=== PATIENT | female | born 1965 | race Caucasian/White ===

== ENCOUNTER 2021-06-27 11:22 | Emergency (ER) | payer OTHER, SELFPAY ==
--- NOTE | ~2021-06-27 | CT_ITS ---
EXAMINATION: CT brain wo con, CT cervical spine wo con EXAM DATE: 06/27/2021 13:33 INDICATION: Fall, hit forehead. History of stroke. TECHNIQUE: Spiral CT of the head and cervical spine was performed without contrast. Axial, coronal a nd sagittal images were reviewed. Axial, coronal and sagittal images of the cervical spine were revie wed. The dose-length product (DLP) for this examination was 605.33 (accession [id number]), 130. 01 (accession [id number]) mGy-cm. The exposure was tailored according to patient size, and itera tive reconstruction (ASIR) was used as additional dose reduction technique. There is no prior study for comparison. FINDINGS: Head CT: Small region of acute subarachnoid hemorrhage overlying the right frontal lobe, axial image 44, coronal 31. Also small focus of acute hemorrhage overlying the left frontal lobe axial image 30. Location of these is consistent with posttraumatic etiology. There is a right-sided lateral ventricular shunt entering the right frontal lobe. Some associated rig ht frontal lobe encephalomalacia. No obstructive hydrocephalus, brain mass, acute intraparenchymal he morrhage, evidence of acute infarction or extra-axial collection. There is encephalomalacia or atroph y of the left cerebral peduncle to be from prior infarction. Bilateral cataract surgery. Cervical spine: There is no evidence of acute cervical fracture. The odontoid process is intact. Pr e-dens space is normal. Prevertebral soft tissue is normal. There are no soft tissue abnormalities identified. There is no disc space widening or traumatic vertebral body subluxation suspected. Mild mid cervical disc disease. Mild cervical arthropathy. A detailed level by level evaluation of calbo chris can be added as addendum if requested. IMPRESSION: 1. Small focus of acute subarachnoid hemorrhage overlying right frontal, and another small focus ove r the left frontal lobe. No calvarial fracture. 2. Mild cervical spondylosis. No acute cervical fracture. 3. Ventriculoperitoneal shunt and other chronic intracranial findings. I discussed small foci subarachnoid hemorrhage with Geeta Rivera MD at 06/27/2021 13:41 CDT. 1. Reviewed, dictated and finalized at location A. IMPRESSION: 1. Small focus of acute subarachnoid hemorrhage overlying right frontal, and a nother small focus over the left frontal lobe. No calvarial fracture. 2. Mild cervical spondylosis. No acute cervical fracture. 3. Ventriculoperitoneal shunt and other chronic intracranial findings. I discussed small foci subarachnoid hemorrhage with Geeta Rivera MD at 13:41 CDT. 1.
[2021-06-27 13:13] VITALS: BP 121/105; PULSE 95; RESP 18; TEMP 36.4; O2SAT 97
--- NOTE | 2021-06-27 14:02 | ED.FALL ---
HPI - Fall General Chief Complaint: Fall Stated Complaint: fall out of wheelchair Time Seen by Provider: 06/27/21 13:41 Source: EMS and RN notes reviewed Mode of arrival: EMS Limitations: physical limitation and clinical condition History of Present Illness HPI Narrative: Patient is 56 years old white female brought [facility] after falling out of her wheelchair prior to arrival to the emergency room, complaining of frontal headache. Patient denies loss of consciousness, nausea, vomiting, fever, chills. History of stroke with right hemiplegia, and aphasia.. Patient is not on any blood thinner Related Data Home Medications Medication Instructions Recorded Confirmed amantadine HCl 100 mg PO DAILY 06/27/21 atorvastatin 06/27/21 06/27/21 citalopram mg 06/27/21 docusate sodium 100 mg PO BID 06/27/21 duloxetine mg PO 06/27/21 ergocalciferol (vitamin D2) 06/27/21 famotidine 20 mg PO BID 06/27/21 loratadine 10 mg PO DAILY 06/27/21 melatonin 5 mg PO HS 06/27/21 mirtazapine mg 06/27/21 montelukast mg 06/27/21 olopatadine 1 drp EACH EYE DAILY 06/27/21 scopolamine base 06/27/21 Allergies Allergy/AdvReac Type Severity Reaction Status Date / Time No Known Allergies Allergy Mild Verified 06/27/21 13:39 Review of Systems Review of Systems: CONSTITUTIONAL: Denies fever, chills, or sweats. EYES: Denies visual changes, redness, or discharge. ENT: Denies rhinorrhea, congestion, sore throat, or otalgia. CARDIOVASCULAR: Denies chest pain, palpitations, or edema. RESPIRATORY: Denies cough or dyspnea. GASTROINTESTINAL: Denies abdominal pain, nausea, vomiting, or diarrhea. GENITOURINARY: Denies dysuria or hematuria. SKIN: Denies rash or itching. MUSCULOSKELETAL: Denies back pain, joint pain, or myalgia. NEUROLOGIC: Complaining of headache PSYCHIATRIC: Denies anxiety or depression. Exam Narrative: General appearance: Well-developed, well-nourished Skin: Normal color Head: Normocephalic, right frontal contusion Eyes: Left eye conjunctival injection, pupil wide dilated not reactive to light. Not sure this is is new or old. ENT: Oropharynx normal, ears normal, nose normal Neck: Supple, nontender Chest and respiratory: Airway patent, no respiratory distress, no accessory muscle use Heart: Regular rate/rhythm Abdomen: Soft, nontender, no organomegaly, quiet bowel sounds Vascular: Normal peripheral pulses, normal capillary refill. Musculoskeletal: Right hemiplegia Neurologic: Alert and severe slurred speech, able to understand me and to follow my commands, right hemiplegia Course Course Emergency Course: Stable Consultations Consultation #1: Dr. Thomas/neurosurgeon at [facility], accepted patient transfer Date: 06/27/21 Time: 14:21 Consultation #2: DR OCAMPO Date: 06/27/21 Time: 14:21 Vital Signs Vital signs: Vital Signs Temperature 36.4 C L 06/27/21 13:13 Pulse Rate 95 06/27/21 13:13 Respiratory Rate 18 06/27/21 13:13 Blood Pressure 121/105 H 06/27/21 13:13 Pulse Oximetry 97 06/27/21 13:13 Temperature 36.4 C L 06/27/21 13:13 Pulse Rate 95 06/27/21 13:13 Respiratory Rate 18 06/27/21 13:13 Blood Pressure 121/105 H 06/27/21 13:13 Pulse Oximetry 97 06/27/21 13:13 MDM - Fall Imaging Data Radiologist's impression: Impressions Cervical Spine CT 06/27/21 13:34 IMPRESSION: 1. Small focus of acute subarachnoid hemorrhage overlying right frontal, and another small focus over the left frontal lobe. No calvarial fracture. 2. Mild cervical spondylosis. No acute cervical fracture. 3. Ventriculoperitoneal shunt and other chronic intracranial findings.
--- NOTE | 2021-06-27 14:32 | PC.NURSE ---
ATTEMPTED TO CALL PRATEEK CANNON'S POA AT [phone] AND THE NUMBER HAS BEEN DISCONNECTED. ATTEMPTED TO CALL SECOND NUMBER ON CHART AT [phone] AND LEFT VOICE MAIL
[2021-06-27 14:38] VITALS: BP 104/42; PULSE 89; RESP 16; O2SAT 95
[2021-06-27 16:15] VITALS: BP 112/72; PULSE 84; RESP 16; O2SAT 96
[2021-06-27 18:20] VITALS: BP 120/64; PULSE 80; RESP 16; O2SAT 98
--- NOTE | 2021-06-27 19:07 | PC.NURSE ---
NEW PHONE NUMBER OBTAINED FOR PRATEEK GALEANA THE PATIENTS MOTHER AND POA. [phone]. MOTHER WAS NOTIFIED OF PATIENTS CONDITION AND NEED FOR TRANSFER TO [facility].
[2021-06-27 22:47] VITALS: BP 108/47; PULSE 82; RESP 12; O2SAT 94
[2021-06-28] VITALS (7 sets, daily range): BP systolic 110–118; BP diastolic 54–68; PULSE 75–91; RESP 12–15; O2SAT 94–97
== END 2021-06-28 02:42 | disposition short-term general hospital (02) ==
LOC: ANHED 14:13
PROVIDERS: Emergency Provider Emergency Medicine; PCP Internal Medicine
DX: S06.6X0A Traumatic subarachnoid hemorrhage without loss of consciousness, initial encounter (principal); G20 Parkinson's disease; H47.012 Ischemic optic neuropathy, left eye; R56.9 Unspecified convulsions; R13.10 Dysphagia, unspecified; Z66 Do not resuscitate; I69.920 Aphasia following unspecified cerebrovascular disease; I69.951 Hemiplegia and hemiparesis following unspecified cerebrovascular disease affecting right dominant side; Z98.2 Presence of cerebrospinal fluid drainage device; M47.812 Spondylosis without myelopathy or radiculopathy, cervical region; W05.0XXA Fall from non-moving wheelchair, initial encounter
CPT/HCPCS: 70450; 72125; 99285

== ENCOUNTER 2024-06-26 11:11 | Outpatient (CLI) | payer OTHER, SELFPAY ==
--- NOTE | ~2024-06-26 | XR_ITS ---
XR chest 2V 06/26/2024 11:34 Indication: Aspiration. Cough and congestion. Procedure: AP and lateral views of the chest Comparison: No prior studies for comparison. Findings: Central line tip in the right atrium. Borderline heart size. Mild interstitial edema. No pl eural effusion or pneumothorax. No acute osseous abnormality. Impression: 1: Mild interstitial edema. Reviewed, dictated and finalized at location B. Impression: 1: Mild interstitial edema.
== END 2024-06-26 11:12 | disposition home or self-care (01) ==
LOC: ANHIMG 11:13
PROVIDERS: PCP Internal Medicine; Visit Provider Internal Medicine
DX: J84.9 Interstitial pulmonary disease, unspecified (principal); R09.89 Other specified symptoms and signs involving the circulatory and respiratory systems
CPT/HCPCS: 71046

== ENCOUNTER 2025-06-29 04:58 | Inpatient (IN) | payer OTHER, SELFPAY ==
--- OUTSIDE RECORDS SUMMARY | 2009-08-23 04:30 | XMS_ITS | Continuity of Care Document ---
Author Organization [facility] Address [address] [place] [address] Exec utive [facility] [address] [place] [address] Phone Care Team Providers Care Concreter Name Role Phone Jerson Milan Unavailable Unavailable Procedures Procedure Date Eye Exam Established Pt Eye Exam Established Pt Advance Directives Directive Yes / No Effective Date File Name No Information Encounters Encounter Description Practice Location Reason(s) For Visit Diagnoses Date Provider Providers Copied on Encounter [facility], [address] [place] [address] [address], [place], [place], [id number], tel:[phone] SEC [facility] No Information [address]. [address] [facility] [address], [facility], . tel:[phone] [facility], [address] [place] [address] [address], [place], [place], [id number], tel:[phone] SEC [facility] No Information [address]. [address] [facility] [place] , [address], [place], [place], [facility], [place]. tel:[phone] Family History Family Member Type Diagnosis Age At Onset No Information Payers Payer name Insurance type Covered libertarian ID Authorjuanita iniguez(s) [facility] Commercial CI [id number] Social History Type Description Quantity Date Captured Comments Sex Female Smoking Status No Information Chief Complaint And Reason For Visit No Information Reason For Referral Reason For Referral No Information History Of Present Illness Encounter Date Complaint History Of Prese nt Illness No Information Functional Status Date Functional Assessmen t No Information Instructions Date Instruction Additional Infor mation No Information Assessments Type Assessment Date No Information Patient Care Teams Name Effective Dates (start - stop) Status Members No Information
[2025-06-29] VITALS (24 sets, daily range): BP systolic 91–130; BP diastolic 52–80; PULSE 93–116; RESP 17–28; TEMP 36.1–36.6; O2SAT 90–101; BMI 33.9
--- NOTE | ~2025-06-29 | CT_ITS ---
CTA CHEST CLINICAL HISTORY: ?PE . COMPARISON: Chest x-ray one day prior TECHNIQUE: Helical CTA performed from thoracic inlet to upper abdomen IV contrast information not listed in PACS Coronal, sagittal reformats. Multiplanar MIPS CT images acquired with automatic exposure control for dose reduction DLP: 690 mGy-cm FINDINGS: Pulmonary arteries: No PE. Thoracic Aorta: No dissection or aneurysm. Atherosclerotic disease. Heart/pericardium: Unremarkable. RV/LV ratio: Normal. Lungs/Pleura: Scattered airspace disease left upper lobe. Near-complete atelectasis and consolidative changes bilateral lower lobes. Tracheobronchial tree: Occluded bronchus intermedius and left lower lobe mainstem. Nodes: No enlarged nodes. Bones: Compression deformity T4. Soft tissues: Breast implants, left with intracapsular rupture. Visualized upper abdomen: Hepatomegaly, with steatosis. Small hiatal hernia. IMPRESSION: 1. Large bilateral aspiration. Bilateral lower lobe bronchial occlusive debris. 2. Left upper lobe aspiration and/or airspace disease. 3. No PE. 4. T4 compression fracture. Reviewed, dictated and finalized at location R. IMPRESSION: 1. Large bilateral aspiration. Bilateral lower lobe bronchial occlusive debris . 2. Left upper lobe aspiration and/or airspace disease. 3. No PE. 4. T4 compression fracture.
--- NOTE | ~2025-06-29 | XR_ITS ---
MODIFIED ESOPHAGRAM HISTORY: Difficulty swallowing TECHNIQUE: Modified barium esophagram was performed on 06/30/2025. I administered fluoroscopy and performed the exam with speech pathologist. Patient was seated for lateral fluoroscopic imaging for ingestion of thin liquids, pudding, solids and quantified amounts, followed by thin liquids in uncontrolled amounts. This was recorded on tape. A single fluoroscopic spot image was also recorded. The DAP for this procedure was 1.273 Gycm2. The amount of fluoroscopy time used during this procedure was 1.4 minutes. FINDINGS: Oral stage: Reduced lingual movement. Pharyngeal stage: Reduced laryngeal elevation. There is vallecular residue. Trace laryngeal penetration without aspiration with moderately thickened liquids.. Cervical/esophageal stage: Adequate function. IMPRESSION: Mild oropharyngeal dysphagia with laryngeal penetration without aspiration with moderately thickened liquids. Please correlate with speech pathologist findings and specific feeding recommendations. Reviewed, dictated and finalized at location A. IMPRESSION: Mild oropharyngeal dysphagia with laryngeal penetration without asp iration with moderately thickened liquids. Please correlate with speech pathol ogist findings and specific feeding recommendations.
--- NOTE | ~2025-06-29 | XR_ITS ---
Examination: XR chest 1V portable Clinical History: SOB Comparison: 06/26/2024 Technique: Portable AP Findings: FILAMENT TESTER shunt tubing right side as before. Heart size normal. Mildly increased interstitial markings left lung. Bibasilar atelectasis. No acute bony abnormality. IMPRESSION: 1. Left lung probably unilateral interstitial pulmonary edema and/or pneumonitis. Chronic interstitial changes not excluded. Reviewed, dictated and finalized at location R. IMPRESSION: 1. Left lung probably unilateral interstitial pulmonary edema and/or pneumonit is. Chronic interstitial changes not excluded.
--- NOTE | ~2025-06-29 | XR_ITS ---
EXAMINATION: XR chest 1V portable DATE: 07/01/2025 19:44 INDICATION: Desaturation and shortness of breath TECHNIQUE: frontal view of the chest was obtained. COMPARISON: Chest radiograph dated 06/30/2025 FINDINGS: Small lung volumes. Mild opacities at the lung bases which could represent atelectasis or pneumonia and which appears slightly improved compared with the prior study. No pleural effusion or pneumothorax. Heart size is normal. Likely ventricular atrial shunt extending caudally along the right side of neck distal tip projecting over the right atrium. IMPRESSION: 1. Small lung volumes with improvement of opacities at the bilateral lung bases which could represent atelectasis or pneumonia. Reviewed, dictated and finalized at location A.
--- NOTE | ~2025-06-29 | XR_ITS ---
EXAMINATION: XR chest 1V portable COMPARISON: No comparisons available. HISTORY: increase in oxygen needs FINDINGS: Small basilar infiltrates. Mild pulmonary venous congestion. No pneumothorax. Mild cardiomegaly. Mediastinal and hilar contours are within normal limits. Bony thorax no acute abnormality. Miscellaneous: Probable right-sided WATER SPONGER shunt. Impression: CHF. Early basilar pneumonia suspected Reviewed, dictated and finalized at location P. Impression: CHF. Early basilar pneumonia suspected
--- NOTE | 2025-06-29 05:01 | ECG_ITS ---
Test Date: 2025-06-29 04:54:13 Measurements Intervals [place] Rate: 111 P: 21 OK: 161 QRS: -1 QRSD: 78 T: 28 QT: 313 QTc: 426 Interpretive Statements SINUS TACHYCARDIA MINIMAL ST DEPRESSION [0.025+ mV ST DEPRESSION] ABNORMAL RHYTHM ECG No previous ECG available for comparison Electronically Signed On 06-29-2025 06:18:38 CDT by Jeremías Us M.D.
[2025-06-29 05:16] LABS: Hematocrit 40.1 % (37.0-47.0); Hemoglobin 11.5 g/dL (12.0-15.0); Immature Granulocyte Percent A 0.4 % (0-0.5); Lymphocytes Absolute Auto 2.36 K/mm3 (0.9-3.2); Mean Corpuscular HGB Conc 28.7 g/dl (32-36); Mean Corpuscular Hemoglobin 24.5 pg (26-34); Mean Corpuscular Volume 85.3 fl (80-100); Nucleated Red Blood Cells Absolute Auto 0.000 K/mm3 (0.0-0.012); Nucleated Red Blood Cells Perc 0.0 % (0.0-0.2); Platelet Count Result 304 k/mm3 (150-375); Red Blood Count 4.70 M/mm3 (4.2-5.4); White Blood Count 11.8 K/mm3 (4.5-10.0)
--- OUTSIDE RECORDS SUMMARY | 2025-06-29 05:17 | XMS_ITS | Patient Health Record ---
Author Organization [facility] Address [address] [place] [address] Care Team Providers Care Trust Advisor Name Role Phone Anshu Fuchs Primary Care Provider Rigoberto Conner Unavailable [phone] Anabel Hardwick Unavailable Allergies No Known Allergies Reason For Referral No Information Medications Medication SIG (Take, Route, Frequency, Duration) Notes Start Date End Date Status Vitamin D (Ergocalciferol) 1.25 MG (55345 UT) Take 1 capsule by mouth once a week; Duration: 28 days Active Ciprofloxacin-dexAMETHason e 0.3-0.1 % INSTILL 4 DROPS INTO AFFECTE EAR TWICE DAILY FOR 7 DAYS.; Duration: 7 Active Hydrocortisone 2.5 % 1 application AT BEDTIME Externally Once a day; Duration: 30 days Active Fluconazole 100 MG 1 tablet Orally octavio y; Duration: 7 days Active Albuterol Sulfate (2.5 MG/3ML) 0.083% 3 mL as needed Inhalation every 6 hrs; Duration: 30 days Active Mucus Relief 600 MG 1 tablet as needed Orally every 12 hrs; Duration: 30 days Active Erythromycin 5 MG/GM 1 application into the lower eyelid of affected eye Ophthalmic Four times a day; Duration: 7 days 05/06/2025 Active Refresh 1.4-0.6 % as directed Ophthalm ic as needed; Duration: 30 days Active Pregabalin 75 MG 1 capsule Orally Twi ce a day 05/20/2025 Active Pataday 0.2 % 1 drop into affected eye Ophthalmic Once a day; Duration: 30 days Active Olopatadine HCl 0.2 % 1 drop into affect ed eye Ophthalmic Once a day; Duration: 30 days Active Wixela Inhub 100-50 MCG/ACT INHALE 1 DOSE BY MOUTH TWICE DAILY; Duration: 30 Active Melatonin 5 MG TAKE 1 TABLET BY SUSAN TH EVERY EVENING; Duration: 30 Active DTx Bessie - Miscellaneous - Incourage Vest externally twice daily As needed sputum management 10/04/2023 Active Docusate Sodium 100 MG 1 capsule as need ed Orally twice a day; Duration: 30 days Not-Taking Senna 8.6 MG 1 tablet Orally ever y 12 hours; Duration: 30 days Active EQ Stool Softener 100 MG Take 1 capsule by mouth twice daily; Duration: 30 Active Albuterol Sulfate HFA 108 (90 Base) MCG/ACT INHALE 1 PUFF BY MOUTH EVERY 4 HOURS NEEDED FOR 30 DAYS; Duration: 34 Active Atorvastatin Calcium 10 MG TAKE 1 TABLET BY MOUTH EVERY DAY; Duration: 90 Active Mirtazapine 15 MG TAKE 1 TABLET BY SUSAN TH EVERY DAY AT BEDTIME; Duration: 90 Active Thick-It - use with all drinks Orally six times a day; Duration: 30 days Active Citalopram Hydrobromide 20 MG 2 tablets Orally Once a day; Duration: 90 days Active Montelukast Sodium 10 MG Take 1 tablet b y mouth once daily; Duration: 180 Active Famotidine 20 MG 1 tablet Orally twic e a day; Duration: 90 days Active Amantadine HCl 100 MG 1 capsule Orally O nce a day; Duration: 90 days Active Gentamicin Sulfate 0.3 % 1 drop into bot h eyes Ophthalmic four time per day; Duration: 5 days 06/26/2023 Active Loratadine 10 MG TAKE 1 TABLET BY SUSAN TH EVERY DAY Active Social History Tobacco Use: Social History Observation Description Date Details (start date - stop date) Never Smoker NA - NA Sex Assigned At : Social History Observation Description Sex Assigned At Female Dont use, Tobacco Use/Smoking Question Answer Notes Are you a nonsmoker Alcohol Screen (Audit-C) Question Answer Notes Did you have a drink containing alcohol in the p ast year? No PRAPARE Question Answer Notes Date Completed/Updated: 10/09/2022 What is your current housing situation? I have h ousing Are you worried about losing your housing? No What is the highest level of school that you have finished? High school diploma or GED In the past year, have you o r any family members you live with been unable to get any of the following when it was really needed? Check all that apply I do not have problems meeting my needs Has lack of transportation k ept you from medical appointments, meetings, work or from getting things needed for daily living? No How often do you see or talk to people that you care about and feel close to? (For example: talking to friends on the phone, visiting friends or family, going to [employer] or club meetings) More than 5 times a week How stressed are you? Stress is when someone feels tense, nervous, anxious, or can\t sleep at night because their mind is troubled Not at all In the past year have you sp ent more than 2 nights in a row in a chcf, assisted, assisted center, or juvenile correctional facility? No Are you a refugee? No Do you feel physically and e motionally safe where you currently live? Yes In the past year, have you b een afraid of your partner or ex-partner? 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 Active confirmed Problem Chronic respiratory failure (81296992) Chronic respiratory failure with hypoxia (J96.11) Active confirmed Problem Dysphagia (14514945) Dysphagia (R13.10) Active confirmed Problem Asthma (739508310) Asthma (J45.909) Active confirmed Problem Dysphagia (27207754) Dysphagia, unspecified type (R13.10) Active confirmed Problem Expressive aphasia (703312801) Expressive aphasia (R47.01) Active confirmed Problem Completed stroke (43177082) Completed stroke (I63.9) 8 Active confirmed Problem Right hemiplegia (880430518) Right hemiplegia (G81.91) 8 Active confirmed Vital Signs Heart Rate 84 /min 06/05/2025 Respiratory Rate 20 /min 06/05/2025 Blood pressure diastolic 84 mm Hg 06/05/2025 Oximetry 94 % 06/05/2025 Height 64 in 06/05/2025 Blood pressure systolic 114 mm Hg 06/05/2025 Encounters Encounter Location Date Provider Diagnosis [address] [place] [address] 06/05/2025 Anshu Fuchs Chronic respiratory failure with hypoxia J96.11 ; Dysphagia, unspecified type R13.10 ; Right hemiplegia G81.91 ; Asthma J45.909 and Completed stroke I63.[address] [address] 06/30/2024 Anshu Fuchs [address] [address] 07/23/2024 Anshu Fuchs [address] [address] 07/23/2024 Anshu Fuchs [address] [address] 07/30/2024 Anshu Fuchs [address] [address] 08/05/2024 Anshu Fuchs [address] [address] 11/03/2024 Anshu Fuchs Dysphagia R13.[address] [address] 11/07/2024 Rigoberto Conner Dysphagia R13.[address] [address] 12/22/2024 Anshu Fuchs [address] [address] 01/29/2025 Anshu Fuchs Conjunctivitis H10.[address] [address] 02/19/2025 Anshu Fuchs [facility] [address] [place] [address] 02/20/2025 Anshu Fuchs [address] [address] 03/26/2025 Anshu Fuchs Thelma infection B37.[address] [address] 04/14/2025 Anshu Fuchs [facility] [address] [place] [address] 04/16/2025 Anabel Hardwick Asthma J45.[address] [address] 04/29/2025 Anshu Fuchs Dermatitis L30.[address] [address] 05/05/2025 Anshu Fuchs Conjunctivitis H10.[address] [address] 05/26/2025 Anshu Fuchs [address] [address] 05/27/2025 Anshu Fuchs Dermatitis L30.9 Assessments Encounter Date Diagnosis (ICD Code) Assessment Notes Treatment Notes Treatment Clinical Notes Section Notes 05/05/2025 Conjunctivitis (ICD-10 - H10.9) 06/05/2025 Chronic respiratory failure with hypoxia (ICD-10 - J96.11) LIKELY DUE TO PRIOR SMOKING AND CHRONIC LOW GRADE ASPIRATION. DISCUSSED WITH PATIENT, MOTHER, AND SISTER THAT REPEAT MODIFIED BARIUM SWALLOW MIGHT SHOW WORSENING OF HER DYSPHAGIA AND THE TREATMENT WOULD BE A FEEDING TUBE AND NPO. THEY DO NOT WISH TO DISCONTINUE ORAL FEEDINGS UNLESS SHE BECOMES MORE SYMPTOMATIC. 05/27/2025 Dermatitis (ICD-10 - L30.9) 06/05/2025 Dysphagia, unspecified type (ICD-10 - R13.10) 11/03/2024 Dysphagia (ICD-10 - R13.10) 11/07/2024 Dysphagia (ICD-10 - R13.10) 01/29/2025 Conjunctivitis (ICD-10 - H10.9) 03/26/2025 Thelma infection (ICD-10 - B37.9) 04/16/2025 Asthma (ICD-10 - J45.909) 04/29/2025 Dermatitis (ICD-10 - L30.9) 06/05/2025 Right hemiplegia (ICD-10 - G81.91) 06/05/2025 Asthma (ICD-10 - J45.909) 06/05/2025 Completed stroke (ICD-10 - I63.9) 05/05/2025 Other Learning About the Safe Use of Antibiotics material was discussed. Pt was educated on use of antibiotic medication including dosing, side effects, adverse effects and anticipated response. Pt was also educated on importance of completing full course of treatment as ordered. Patient voiced understanding of all. Plan Of Treatment No Information Insurance Providers Payer Name Payer Address Payer Phone Subscriber Number Group Number Insured Name Patient Relationship to Insured Coverage Start Date Coverage End Date [employer] [address] [place] [address] [id number] Esme Zeng Self - patient is the insured 3 3 [employer] [facility] [address] [place] [address] [id number] Esme Zeng Self - patient is the insured 3 MEDICARE PART A [address] [place] [address] [id number] Esme Zeng Self - patient is the insured 3 Medical (General) History Surgical History Surgery Date(Month/Year) Brain shunt 12/2017 Hospitalization History Reason Date(Month/Year) Stroke 12/2017
--- OUTSIDE RECORDS SUMMARY | 2025-06-29 05:17 | XMS_ITS | Clinical Summary ---
Author Organization [facility] Address [address] [place] [address] Care Team Providers Care Ironing Machine Operator Name Role Phone Jose Perez MD Primary Care Provider Source Comments [facility],non-[facility] health Affiliates and Associated Physician Practices is amultiple site organization consisting of ambulatory clinics and hospital sitesin [place], [place], [place] and [place]. This disclosure is being madepursuant to the Care Everywhere program and may not contain all information available regarding this patient. Last updated [facility] Health Allergies No known active allergies Social History Tobacco Use Types Packs/Day Years Used Date Smoking Tobacco: Never Assessed Comments Unknown Sex and Gender Information Value Date Recorded Sex Assigned at Not on file Legal Sex Female 5:53 AM WIRE [employer] Gender Identity Not on file Sexual Orientation Not on file Last Filed Vital Signs Vital Sign Reading Time Taken Comments Blood Pressure 115/74 06/28/2021 11:29 AM CDT Pulse 80 06/28/2021 12:05 PM CDT Temperature 37 C (98.6 F) 06/28/2021 12:05 PM CDT Respiratory Rate 14 06/28/2021 11:29 AM CDT Oxygen Saturation 95% 06/28/2021 12:05 PM CDT Inhaled Oxygen Concentration - - Weight 47.6 kg (105 lb) 06/28/2021 3:44 AM CDT Height 160 cm (5' 3) 06/28/2021 3:44 AM CDT Body Mass Index 18.6 06/28/2021 3:44 AM CDT Plan of Treatment Health Maintenance Due Date Last Done Comments COLOGUARD (AGES 45-75) - COL ON CA SCREENING 1963 COLON MONITORING 1963 COLONOSCOPY - COLON CA SCREENING 1963 CT COLONOGRAPHY - COLON CA SCREENING 1963 Colorectal Cancer Screening 1963 FIT - COLON CA SCREENING 1963 FLEX SIG - COLON CA SCREENING 1963 LIPID TESTING 1963 MAMMOGRAM 1963 HIV SCREENING 1978 HEPATITIS C SCREENING 05/06/1981 DTAP/TDAP/TD VACCINES (1 - Tdap) 1982 PNEUMOCOCCAL VACCINE 50+ (1 of 1 - PCV) 2013 ZOSTER VACCINE (1 of 2) 2013 DEPRESSION SCREENING 10/01/2024 COVID-19 VACCINE (1 - 2023-2 5 season) 2025 INFLUENZA VACCINE (#1) 2025 Respiratory Syncytial Virus (RSV) Vaccine Pt: or over 60 yrs (1 - 1-dose 75+ series) 2038 HEPATITIS B VACCINE Aged Out No longe r eligible based on patient's age to complete this topic HIB VACCINE Aged Out No longer eligi ble based on patient's age to complete this topic HPV VACCINE Aged Out No longer eligi ble based on patient's age to complete this topic MENINGOCOCCAL (Group B) VACC INE SHARED DECISION-MAKING Aged Out No longer eligibl e based on patient's age to complete this topic MENINGOCOCCAL GROUPS A/C/Y/W VACCINE Aged Out No longer eligible b ased on patient's age to complete this topic Insurance [facility] [address] Care Teams Ironing Machine Operator Relationship Specialty Start Date End Date Jose Perez MD [address] [place] [phone] PCP - General Internal Medicine 07/23/15
--- OUTSIDE RECORDS SUMMARY | 2025-06-29 05:18 | XMS_ITS | Clinical Summary ---
Author Organization [facility] Address [address] [place] [address] [place] [address] Care Team Providers Care Adult School Teacher Name Role Phone Unavailable Primary Care Provider Unavailabl e Social History Tobacco Use Types Packs/Day Years Used Date Smoking Tobacco: Never Assessed Comments Unknown Sex and Gender Information Value Date Recorded Sex Assigned at Not on file Legal Sex Female 5:35 AM EGG PASTEURIZER Gender Identity Not on file Sexual Orientation Not on file Plan of Treatment Health Maintenance Due Date Last Done Comments DTAP/TDAP/TD VACCINES (1 - Tdap) 1982 HPV/Cotest (21-29) 1984 CERVICAL CANCER SCREENING 1993 HPV/Cotest (30-65) 1993 PAP SMEAR 1993 BREAST CANCER SCREENING 2003 COLORECTAL SCREENING 2008 Colorectal Cancer Screening 2008 FIT-DNA Q 3 years 2008 FIT/FOBT Q 1 year 2008 Flex Sig/CT Colonography Q 5 years 2008 ZOSTER VACCINE (1 of 2) 2013 INFLUENZA VACCINE (#1) 2025 RSV VACCINE (60+ or ) (1 - 1-dose 75+ series) 2038 Insurance [facility] Address: [facility] [id number] [place] [address]
--- OUTSIDE RECORDS SUMMARY | 2025-06-29 05:18 | XMS_ITS | Encounter Summary ---
Author Organization [facility] Address 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 Gender Identity Not on file Sexual Orientation Not on file documented as of this encounter Plan of Treatment Not on file documented as of this encounter Procedures Procedure Name Priority Date/Time Associated Diagnosis Comments CT HEAD WO CONTRAST Stat 04/02/2008 2 :03 PM CDT CBC WITH DIFFERENTIAL Stat 04/02/2008 1:20 PM CDT COMPREHENSIVE METABOLIC PANEL Stat 04/02/2008 1:20 PM CDT documented in this encounter Results * CT HEAD WO CONTRAST (04/02/2008 2:03 PM CDT) Anatomical Region Laterality Modality Head Other 04/02/2008 2:03 PM CDT Narrative 04/02/2008 3:51 PM CDT [facility] [address] [place], [place] [address] Admit Date: 04/02/2008 ESME MORELOS Sex: F Admit Prov: ER, AUTHORIZED P Date: 1965 Primary Care Prov: Margarita POZO CMRN: [id number] [id number] [facility] Ordering Prov: N/A Accession Number: [id number] Interpretation EXAM: CT OF THE HEAD WITHOUT CONTRAST, 04/02/2008 History: Dizziness. Technique: CT of the head was performed without intravenous contrast. Continuous spiral imaging was performed through the head from above the vertex through the skull base. Images of the brain were reconstructed in the axial plane at 5 mm intervals. Bone and soft tissue windows were reviewed. Findings: The brain and ventricles are within normal limits. There is no hemorrhage, midline shift, mass-effect, or extra-axial fluid collection. Review of bone windows shows no depressed or displaced skull fracture. There is no aggressive bone lesion of the skull. Paranasal sinuses and mastoid air cells are clear. Impression: Negative unenhanced CT of the brain. . Dictated by: ALFONSO TREADWELL 04/02/2008 14:24 Electronically signed by: ALFONSO TREADWELL 04/02/2008 15:50 Transcribed: 04/02/2008 14:47 DKT Procedure Note Alfonso Treadwell - 04/02/[address] [address] Admit Date: 04/02/2008 ESME MORELOS Sex: F Admit Prov: ER, AUTHORIZED P Date: 1965 Primary Care Prov: Margarita POZO CMRN: [id number] [facility] [id number] IM[facility] Ordering Prov: N/A Interpretation EXAM: CT OF THE HEAD WITHOUT CONTRAST, 04/02/2008 History: Dizziness. Technique: CT of the head was performed without intravenouscontrast. Continuous spiral imaging was performed through the head from abovethe vertex through the skull base. Images of the brain were reconstructedin the axial plane at 5 mm intervals. Bone and soft tissue windowswere reviewed. Findings: The brain and ventricles are within normal limits. There isno hemorrhage, midline shift, mass-effect, or extra-axial fluidcollection. Review of bone windows shows no depressed or displaced skullfracture. There is no aggressive bone lesion of the skull. Paranasal sinusesand mastoid air cells are clear. Impression: Negative unenhanced CT of the brain. . Dictated by: ALFONSO TREADWELL 04/02/2008 14:24 Electronically signed by: ALFONSO TREADWELL 04/02/2008 15:50 Transcribed: 04/02/2008 14:47 DKT [place] MD CT ORDERABLES Final Result * CBC WITH DIFFERENTIAL (04/02/2008 1:20 PM CDT) RDW-STDEV 42.0 37.1 - 48.7 fL [facility] RBC 4.79 3.90 - 4.90 M/uL [facility] MCHC 34.1 31.5 - 35.5 % [facility] MCV 86.4 82.0 - 99.0 fL [facility] PLATELETS 292 140 - 350 K/uL [facility] HEMOGLOBIN 14.1 11.8 - 14.8 g/dL [facility] RDW 13.2 11.5 - 14.5 % [facility] WBC 6.6 4.0 - 9.8 K/uL [facility] MCH 29.4 27.2 - 32.6 pg [facility] MPV 9.5 9.3 - 12.4 fL [facility] HEMATOCRIT 41.4 35.5 - 44.0 % [facility] EOSINOPHIL ABSOLUTE 0.07 0.00 - 0.70 K/uL [facility] LYMPHOCYTES 42 16 - 45 % [facility] LYMPHOCYTE ABSOLUTE 2.75 0.70 - 4.50 K/uL [facility] BASOPHILS 0 0 - 2 % [facility] BASOPHILS ABSOLUTE 0.02 0.00 - 0.20 K/uL [facility] MONOCYTES 6 3 - 13 % [facility] MONOCYTE ABSOLUTE 0.42 0.10 - 1.30 K/uL [facility] NEUTROPHILS 51 45 - 70 % [facility] NEUTROPHIL ABSOLUTE 3.34 1.90 - 7.00 K/uL [facility] EOSINOPHILS 1 0 - 7 % [facility] Blood specimen (specimen) 04/02/2008 1:20 PM CDT 04/02/2008 1:32 PM CDT us [place] MD HEMATOLOGY ORDERABLES Edited INTERFACE SYSTEM Refer to clinic/hospital department [facility] CLIA# [id number] [address] [place] [address] * (ABNORMAL) COMPREHENSIVE METABOLIC PANEL (04/02/2008 1:20 PM CDT) ALKALINE PHOSPHATASE 92 35 - 104 U/L [facility] BILIRUBIN TOTAL 0.4 0.2 - 1.0 mg/dL [facility] CO2 21(L) 22 - 30 mmol/L [facility] TOTAL PROTEIN 7.6 6.3 - 8.6 g/dL [facility] POTASSIUM 3.9 3.5 - 4.9 mmol/L [facility] GLUCOSE 86 65 - 99 mg/dL [facility] AST 16 12 - 32 U/L [facility] BUN 11 6 - 20 mg/dL [facility] CALCIUM 9.2 8.4 - 10.2 mg/dL [facility] CHLORIDE 103 96 - 108 mmol/L [facility] ALBUMIN 4.6 3.4 - 4.8 g/dL [facility] CREATININE 0.64 0.51 - 0.95 mg/dL [facility] SODIUM 135 135 - 145 mmol/L [facility] ALT 12 0 - 31 U/L [facility] GFR, >60 >=60 mL/min/1.7 sq meter [facility] GFR >60 >=60 mL/min/1.7 sq meter [facility] Comment: Modification of Diet in Renal Disease (MDRD) study formula. Estimated GFR rate interpretative information for both Americans and non- Americans is available on the [facility] Intranet at: [email or web address] Select: Lab Policies and Procedures Select: Reference Ranges - GFR Blood specimen (specimen) 04/02/2008 1:20 PM CDT 04/02/2008 1:32 PM CDT us [facility] [place] MD CHEMISTRY ORDERABLES Edited [facility] CLIA# [id number] [address] [place], [place] [address] documented in this encounter Visit Diagnoses Not on filedocumented in this encounter Care Teams Alfalfa Dehydrator Operator Relationship Specialty Start Date End Date Margarita Pozo MD PCP - General 04/01/08 09/15/21 documented as of this encounter
[2025-06-29 05:29] LABS: Alanine Aminotransferase 23 U/L (6-35); Albumin Level 4.2 g/dL (3.5-5.1); Alkaline Phosphatase 200 U/L (38-126); Anion Gap 9 mmol/L (4-12); Aspartate Amino Transferase 30 U/L (14-36); Bilirubin,Total 0.4 mg/dL (0.2-1.3); Blood Urea Nitrogen 19 mg/dL (7-17); Calcium 9.3 mg/dL (8.4-10.2); Carbon Dioxide 27 mmol/L (22-30); Chloride 105 mmol/L (98-107); Estimated Glomerular Filt Rate 60; Glucose 120 mg/dL (65-110); Magnesium 2.5 mg/dL (1.6-2.3); Potassium 4.7 mmol/L (3.4-5.0); Sodium 141 mmol/L (137-145); Total Protein 8.9 g/dL (6.3-8.2)
[2025-06-29 05:38] LABS: NT Pro B Type Natriuretic Pept 71 pg/mL (19.9-100)
[2025-06-29] MEDS: IPRATROPIUM BR 0.02% INH SOLN 0.5 MG/2.5 ML VIAL 2 MG INHALATION (05:48)
[2025-06-29] MEDS: ALBUTEROL SULFATE NEB 2.5 MG/3 ML INH 10 MG INHALATION (05:48)
[2025-06-29 05:53] LABS: Influenza A QL RT-PCR Negative (Negative); Influenza B QL RT-PCR Negative (Negative); RSV RNA, RT-PCR Negative (Negative); SARS-CoV-2 RNA PCR Negative (Negative)
[2025-06-29 05:57] LABS: Alveolar/Arterial O2 Gradient 276.7 mmHg; Carboxyhemoglobin 0.8 % THb (0-2.0); Fractional Inspired Oxygen 55 %; HCO3 ABG 24.6 mEq/l (22.0-26.0); Methemoglobin ABG 0.2 %THb (0-1.5); Oxygen Content ABG 15.7 %vol (16.0-22.0); Oxygen Saturation ABG 89.8 % (95.0-100.0); PCO2 ABG 48.3 mmHg (35.0-45.0); PO2 ABG 61.7 mmHg (80.0-100.0); PO2 FiO2 Ratio Arterial Blood 1.12 %; Reduced Hemoglobin 10.2 %THb (0-5.0)
--- NOTE | 2025-06-29 06:15 | ED.CHESTPAIN ---
HPI - Chest Pain General Chief Complaint: Shortness of Breath/Dyspnea Stated Complaint: Difficulty breathing/chest pain History of Present Illness HPI narrative: Patient is a 60-year-old female who presents to the emergency department this evening complaining of shortness of breath. 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 Patient does have a history of COPD and does wear home oxygen, 4 L. She has been satting between 90-92% on her 4 L. patient is difficult to understand secondary to her aphasia and part of the history of present illness was obtained from family members present at bedside. Related Data Home Medications ?Medication ?Instructions ?Recorded ?Confirmed ?Last Taken ?Type amantadine HCl 100 mg capsule 100 mg PO DAILY 06/27/21 Unknown History atorvastatin 10 mg tablet 06/27/21 06/27/21 Unknown History citalopram 20 mg tablet mg 06/27/21 Unknown History docusate sodium 100 mg capsule 100 mg PO BID 06/27/21 Unknown History duloxetine 60 mg capsule,delayed mg PO 06/27/21 Unknown History release ergocalciferol (vitamin D2) 1,250 06/27/21 Unknown History mcg (50,000 unit) capsule famotidine 20 mg tablet 20 mg PO BID 06/27/21 Unknown History loratadine 10 mg disintegrating 10 mg PO DAILY 06/27/21 Unknown History tablet melatonin 5 mg tablet 5 mg PO HS 06/27/21 Unknown History mirtazapine 15 mg tablet mg 06/27/21 Unknown History montelukast 10 mg tablet mg 06/27/21 Unknown History olopatadine 0.2 % eye drops 1 drp EACH EYE DAILY 06/27/21 Unknown History scopolamine base 1 mg over 3 days 06/27/21 Unknown History transdermal patch Allergies Allergy/AdvReac Type Severity Reaction Status Date / Time No Known Allergies Allergy Mild Verified 06/27/21 13:39 Review of Systems Review of Systems: All systems are reviewed and are negative unless stated otherwise in the HPI. Exam Narrative: General: Alert, awake, afebrile, in no acute distress, aphasia 2/2 to CVA. HEENT: PERRL, no rhinorrhea, no post nasal drip, oropharynx clear. Neck: Trachea midline, no JVD, no lymphadenopathy. Cardiovascular: Regular rate and rhythm, no murmurs, rubs or gallops, no peripheral edema. Respiratory: Clear to auscultation bilaterally, no tachypnea, no wheezing, no rhonchi, no rubs, no respiratory distress. Abdomen: Soft, nontender, nondistended, no rebound, no guarding, no peritoneal signs. Musculoskeletal: No joint swelling or deformity, normal muscle tone. Skin: No rashes or petechia, no signs of infection. Psychiatric: Alert and oriented, normal behavior and judgment for situation. Neurological: Alert and oriented to person, place, and time. Aphasia secondary to history of CVA with right-sided deficits. Follows all commands. Course Vital Signs Vital signs: Vital Signs Temperature 96.9 F L 06/29/25 04:52 Pulse Rate 111 H 06/29/25 04:52 Respiratory Rate 23 H 06/29/25 04:52 Pulse Oximetry 94 06/29/25 04:52 Oxygen Delivery Nasal Cannula 06/29/25 04:52 Oxygen Flow Rate 6 06/29/25 04:52 Temperature 96.9 F L 06/29/25 04:52 Pulse Rate 104 H 06/29/25 05:53 Respiratory Rate 23 H 06/29/25 05:53 Pulse Oximetry 93 06/29/25 05:54 Oxygen Delivery Nasal Cannula 06/29/25 05:54 Oxygen Flow Rate 5.5 06/29/25 05:54 MDM - Chest Pain MDM Narrative Medical decision making narrative: The patient was evaluated by myself in the emergency department. History is obtained from EMS report and family members present at bedside and physical exam was performed. External medical records were reviewed at this time. IV was established and pertinent tests were ordered. Patient was administered an hour long DuoNeb breathing treatment and 125 mg of IV Solu-Medrol. EKG was obtained which revealed sinus tachycardia rate of 111 beats per minute, no evidence of arrhythmia or evidence of acute ischemia. EKG was independently interpreted by me and is currently pending official cardiology read. Laboratory results obtained revealing a leukocytosis of 11.8, otherwise unremarkable. Viral swabs negative for COVID/influenza/RSV. Imaging studies obtained included CXR which was independently interpreted by me revealing bilateral opacities consistent with pneumonia, which is pending final radiology interpretation. At this time patient was started on antibiotics with Rocephin and azithromycin to cover her for pneumonia. Blood cultures were obtained prior to antibiotic administration. Differential diagnosis considerations include reactive airway disease/COPD exacerbation, pneumonia, acute viral syndrome, pulmonary edema. Comorbidities impacting this visit include history of COPD with chronic oxygen use. I have evaluated and discussed social determinants of health with the patient that could potentially impact subsequent diagnosis and treatment plans. On repeat assessment of the patient, reevaluation revealed that the patient is doing well and is in no acute distress. Patient symptoms have improved since she arrived to our emergency department. Repeat vital signs were all reviewed and noted to be stable. Differential diagnosis and treatment plan were discussed with the patient at bedside. Patient agrees with discussion and after shared medical decision making agrees with admission. All questions were answered to the patient's satisfaction. Case was discussed with the on-call hospitalist Dr. Finley at 0635 and she accepted admission. Patient's diet consists of a thickened liquid and pureed food as she is an aspiration risk. Critical care time of 45 minutes, exclusive of separately performed procedures, necessary for treating or preventing eminent or life-threatening deterioration of patient's condition of acute respiratory failure and sepsis secondary to pneumonia, focused on patient care provided personally by me and time spent during initial evaluation, physical examination, ordering and performing treatments and interventions, ordering and reviewing laboratory studies, ordering and reviewing radiographic studies, re-evaluation of the patient's condition, evaluation of the patient's response to treatment, and discussion of patient case with multiple consultants. Lab Data 06/29/25 05:08 06/29/25 05:08 Labs: Lab Results 06/29/25 Range/Units 05:08 WBC 11.8 H (4.5-10.0) K/mm3 RBC 4.70 (4.2-5.4) M/mm3 Hgb 11.5 L (12.0-15.0) g/dL Hct 40.1 (37.0-47.0) % MCV 85.3 (80-100) fl MCH 24.5 L (26-34) pg MCHC 28.7 L (32-36) g/dl RDW 16.7 H (11.5-14.5) % Plt Count 304 (150-375) k/mm3 MPV 10.3 (7.4-10.4) fl Immature Gran % (Auto) 0.4 (0-0.5) % Neut % (Auto) 68.6 (45.5-73.1) % Lymph % (Auto) 20.1 (18.3-44.2) % Mingo % (Auto) 6.3 (2.6-8.5) % Eos % (Auto) 4.1 (0-4.4) % Baso % (Auto) 0.5 (0.2-1.2) % Lymph # (Auto) 2.36 (0.9-3.2) K/mm3 Mingo # (Auto) 0.7 H (0.1-0.6) K/mm3 Eos # (Auto) 0.5 H (0-0.3) K/mm3 Baso # (Auto) 0.1 (0.0-0.1) K/mm3 Abs Immat Gran (auto) 0.05 H (0.00-0.031) K/mm3 Absolute Neuts (auto) 8.1 H (1.3-6.7) K/mm3 Absolute Nucleated RBC 0.000 (0.0-0.012) K/mm3 Nucleated RBC % 0.0 (0.0-0.2) % Sodium 141 (137-145) mmol/L Potassium 4.7 (3.4-5.0) mmol/L Chloride 105 (98-107) mmol/L Carbon Dioxide 27 (22-30) mmol/L Anion Gap 9 (4-12) mmol/L BUN 19 H (7-17) mg/dL Creatinine 0.95 (0.7-1.0) mg/dL Estim Creat Clear Calc Not Reportable Estimated GFR 60 (59 - ) Glucose 120 H (65-110) mg/dL Lactic Acid 1.1 (0.7-2.0) mmol/L Calcium 9.3 (8.4-10.2) mg/dL Magnesium 2.5 H (1.6-2.3) mg/dL Total Bilirubin 0.4 (0.2-1.3) mg/dL AST 30 (14-36) U/L ALT 23 (6-35) U/L Alkaline Phosphatase 200 H (38-126) U/L NT-Pro-B Natriuret Pep 71 (19.9-100) pg/mL Total Protein 8.9 H (6.3-8.2) g/dL Albumin 4.2 (3.5-5.1) g/dL Influenza A (RT-PCR) Negative (Negative) Influenza B (RT-PCR) Negative (Negative) RSV (RT-PCR) Negative (Negative) SARS-CoV-2 RNA (RT-PCR) Negative (Negative) Critical Care Time Critical Care Time Critical Care Time: Yes Total Critical Care Time: 45 (Please refer to [facility] for attestation.) Discharge Plan Discharge Clinical Impression: Community acquired pneumonia, Acute exacerbation of chronic obstructive pulmonary disease (COPD), Sepsis, Respiratory failure Patient Disposition: Still a Patient Condition: Improved Patient Language: Syriac Prescriptions: No Action atorvastatin 10 mg tablet citalopram 20 mg tablet montelukast 10 mg tablet mirtazapine 15 mg tablet ergocalciferol (vitamin D2) 1,250 mcg (50,000 unit) capsule duloxetine 60 mg capsule,delayed release(DR/EC) PO loratadine 10 mg Tablet,Disintegrating 10 mg PO DAILY amantadine HCl 100 mg Capsule 100 mg PO DAILY olopatadine 0.2 % Drops 1 drp EACH EYE DAILY melatonin 5 mg Tablet 5 mg PO HS scopolamine base 1 mg over 3 days patch 3 day famotidine 20 mg Tablet 20 mg PO BID docusate sodium 100 mg Capsule 100 mg PO BID Follow-up/Referrals: Anshu Fuchs MD [Primary Care Provider, Hospitalist] Time of Disposition: 06:16
[2025-06-29] MEDS: cefTRIAXone 1 GM in SODIUM CHLORIDE 0.9% IV 50 ML 100 ML IVPB (06:33)
[2025-06-29] MEDS: AZITHROMYCIN IV 500 MG in SODIUM CHLORIDE 0.9% IV 250 ML IVPB (06:34)
[2025-06-29 06:50] LABS: Site Drawn RIGHT RADIAL
[2025-06-29 06:51] LABS: Liters per Minute 5.0 LPM; Modified Allen's Test Pass
--- NOTE | 2025-06-29 07:56 | ADMGEN ---
This patient, Esme Zeng, was admitted to 3 [facility] Surg Room 331-01. Patient/family oriented to hospital policies and general routines including ID bracelet, bed and alarms, visiting hours, pain management, procedures, bathroom and other care routines, personal items, smoking policy, room service/diet, and visiting hours. Information on how to activate the Rapid Response Team has been discussed. Patient/Family are encouraged to report perceived risks to care and to ask questions if they do not understand what they are told or what they should do. Report was called by Nati VARGAS from the ED
--- NOTE | 2025-06-29 12:02 | PM.IMHP ---
H&P: HPI History of Present Illness Date/Time: 06/29/25 12:02 Chief Complaint: difficulty of breathing Narrative: Esme Zeng is a 60 year old female with pmhx of CVA with right hemiplegic and aphasia and COPD on home O2 4L NC who is here for sob. Despite her severe aphasia, patient is oriented to person, time and place. Per chart review otehr than sob, she does not have fever or chills or chest pain. CBC shows wbc 11.8. Viral PCR negative for COVID/Influenza and RSV. Chest xray shows left lung unilateral interstitial pulmonary edema and/or pneumonitis. chronic interstitial change are not excluded. Review of Systems Review of Systems: All systems reviewed & are unremarkable except as noted in HPI and below ROS unobtainable: Yes unobtainable due to medical condition PMFSH Past Medical History Medical History (Updated 06/29/25 @ 12:13 by Jada Sanchez MD) Dysphagia Social History Social History Smoking packs per day: 1 Smoking cigarettes per day: 20.0 Years smoked: 40 Smoking pack-years: 40.00 Smoking status: Former smoker Tobacco type: cigarettes Smoking end date: 01/18/18 Alcohol intake: never Substance use: never Lack of Transportation: No Lack of Food: Never True Current Housing: I Have Housing Concerned About Future Housing: No Difficulty Paying Gas/Electric Bills: No Difficulty Paying for Meds: No Currently Unemployed: No Education: High School Diploma/GED Difficulty w/ Childcare or Family Care: No Spiritual care concerns: No Meds Home Medications and Allergies Home Medications ?Medication ?Instructions ?Recorded ?Confirmed ?Type amantadine HCl 100 mg capsule 100 mg PO DAILY 06/27/21 06/29/25 History atorvastatin 10 mg tablet 10 mg PO HS 06/27/21 06/29/25 History citalopram 20 mg tablet 20 mg PO Q12H 06/27/21 06/29/25 History docusate sodium 100 mg capsule 100 mg PO BID 06/27/21 06/29/25 History duloxetine 60 mg capsule,delayed mg PO 06/27/21 History release ergocalciferol (vitamin D2) 1,250 06/27/21 History mcg (50,000 unit) capsule famotidine 20 mg tablet 20 mg PO BID 06/27/21 06/29/25 History loratadine 10 mg disintegrating 10 mg PO DAILY 06/27/21 06/29/25 History tablet melatonin 5 mg tablet 5 mg PO HS 06/27/21 06/29/25 History mirtazapine 15 mg tablet 15 mg PO HS 06/27/21 06/29/25 History montelukast 10 mg tablet 10 mg PO DAILY 06/27/21 06/29/25 History olopatadine 0.2 % eye drops 1 drp EACH EYE DAILY 06/27/21 History scopolamine base 1 mg over 3 days 06/27/21 History transdermal patch albuterol sulfate 90 mcg/actuation 1 puff inhalation Q4H PRN 06/29/25 06/29/25 History aerosol inhaler shortness of breath or wheezing fluticasone 100 mcg-salmeterol 50 1 inh inhalation Q12H 06/29/25 06/29/25 History mcg/dose blistr powdr for inhalation ([facility]) pregabalin 75 mg capsule 75 mg PO Q12H 06/29/25 06/29/25 History Allergies Allergy/AdvReac Type Severity Reaction Status Date / Time No Known Allergies Allergy Mild Verified 06/27/21 13:39 Vital Signs Vital Signs - 24 hr 06/29/25 04:52 06/29/25 05:00 06/29/25 05:15 Temperature 36.1 C L Pulse Rate 111 H 108 H 105 H Respiratory Rate 23 H 22 H 17 Blood Pressure 91/80 L 111/64 Pulse Oximetry 94 92 92 Oxygen Delivery Nasal Cannula Oxygen Flow Rate 6 06/29/25 05:30 06/29/25 05:39 06/29/25 05:45 Temperature Pulse Rate 100 106 H Respiratory Rate 18 28 H Blood Pressure 118/64 130/69 Pulse Oximetry 93 92 96 Oxygen Delivery Nasal Cannula Oxygen Flow Rate 6 06/29/25 05:53 06/29/25 05:54 06/29/25 06:00 Temperature Pulse Rate 104 H 101 H Respiratory Rate 23 H 24 H Blood Pressure 130/69 Pulse Oximetry 93 98 Oxygen Delivery Nasal Cannula Oxygen Flow Rate 5.5 06/29/25 06:15 06/29/25 07:13 06/29/25 07:14 Temperature Pulse Rate 101 H 116 H 116 H Respiratory Rate 26 H 23 H Blood Pressure 105/52 L 106/66 Pulse Oximetry 96 94 Oxygen Delivery Oxygen Flow Rate 06/29/25 08:00 06/29/25 08:12 Temperature 36.4 C Pulse Rate 109 H Respiratory Rate 17 Blood Pressure 111/72 Pulse Oximetry 92 92 Oxygen Delivery Nasal Cannula Oxygen Flow Rate 5 Exam Narrative: APPEARANCE: poor oral hygiene, obese, severe aphasia EYES: EOMI HEENT: Normocephalic, atraumatic, OMM RESPIRATORY: No respiratory distress Clear to auscultation bilaterally with no rhonchi wheezing or rales. CARDIOVASCULAR: RRR, S1 and S2 without murmurs rubs or gallops. ABDOMINAL: Soft, nontender, nondistended, no rebound or guarding MUSCULOSKELETAl: right-sided hemiplegic NEURO: Awake and alert. Following commands, aphasia, right-sided body paralyses SKIN:: Warm, dry. No rashes lesions or abrasions PSYCHIATRIC: anxious H&P: Results Labs Labs: Short CBC 06/29/25 Range/Units 05:08 WBC 11.8 H (4.5-10.0) K/mm3 Hgb 11.5 L (12.0-15.0) g/dL Hct 40.1 (37.0-47.0) % Plt Count 304 (150-375) k/mm3 BMP 06/29/25 05:08 Sodium 141 Potassium 4.7 Chloride 105 Carbon Dioxide 27 BUN 19 H Creatinine 0.95 Glucose 120 H Calcium 9.3 Liver Function 06/29/25 Range/Units 05:08 Total Bilirubin 0.4 (0.2-1.3) mg/dL AST 30 (14-36) U/L ALT 23 (6-35) U/L Alkaline Phosphatase 200 H (38-126) U/L Albumin 4.2 (3.5-5.1) g/dL Assessment and Plan Assessment and plan (1) Pneumonia involving left lung: Code(s): J18.9 - Pneumonia, unspecified organism Status: Acute (2) History of CVA (cerebrovascular accident) without residual deficits: Code(s): Z86.73 - Personal history of transient ischemic attack (TIA), and cerebral infarction without residual deficits Status: Acute (3) Dysphagia: Qualifiers: Dysphagia type: unspecified Qualified Code(s): R13.10 - Dysphagia, unspecified Code(s): R13.10 - Dysphagia, unspecified Status: Inactive (4) Acute exacerbation of chronic obstructive pulmonary disease (COPD): Code(s): J44.1 - Chronic obstructive pulmonary disease with (acute) exacerbation Status: Acute Plan 1. left lung interstitial infiltrate/edema - likely 2/2 pneumonia in the setting of COPD on 4 L nasal cannula at home - oxygen requirement at baseline - in the ED antibiotics started, blood culture collected and COVID/influenza - continue ceftriaxone and azithromycin - follow blood culture 2. COPD - O2 requirement at baseline less likely this is exacerbation - Continue home Wixela Inhub with prn albuterol - continue montelukast 3. dysphagia - continue pureed diet 3. history of CVA with right-sided deficit physical and occupational therapy Quality VTE Prophylaxis VTE prophylaxis: pharmacologic ordered
[2025-06-29] MEDS: IPRATROPIUM 0.5 MG/ALBUTEROL SULFATE 2.5 MG AMPUL.NEB 3 ML INHALATION ×2 (13:35→20:12)
[2025-06-29] MEDS: FLUTICASONE/SALMETEROL 45-21 MCG INHALER 1 PUFF 2 PUFF INHALATION (20:12)
[2025-06-29] MEDS: MIRTAZAPINE 15 MG TABLET PO (20:30)
[2025-06-29] MEDS: PREGABALIN (*CRX) 75 MG CAPSULE PO (20:30)
[2025-06-29] MEDS: CITALOPRAM HYDROBROMIDE 20 MG TABLET PO (20:30)
[2025-06-29] MEDS: ATORVASTATIN 10 MG TABLET PO (20:30)
[2025-06-29] MEDS: MELATONIN 5 MG TABLET PO (20:38)
[2025-06-30] VITALS (20 sets, daily range): BP systolic 106–112; BP diastolic 66–73; PULSE 84–100; RESP 16–22; TEMP 36.4–36.6; O2SAT 91–94
[2025-06-30] MEDS: IPRATROPIUM 0.5 MG/ALBUTEROL SULFATE 2.5 MG AMPUL.NEB 3 ML INHALATION ×4 (01:35→21:43)
[2025-06-30 06:10] LABS: Hematocrit 34.0 % (37.0-47.0); Hemoglobin 9.8 g/dL (12.0-15.0); Mean Corpuscular HGB Conc 28.8 g/dl (32-36); Mean Corpuscular Hemoglobin 25.0 pg (26-34); Mean Corpuscular Volume 86.7 fl (80-100); Platelet Count Result 265 k/mm3 (150-375); Red Blood Count 3.92 M/mm3 (4.2-5.4); White Blood Count 10.0 K/mm3 (4.5-10.0)
[2025-06-30] MEDS: FLUTICASONE/SALMETEROL 45-21 MCG INHALER 1 PUFF 2 PUFF INHALATION ×2 (08:13→21:43)
[2025-06-30] MEDS: PREGABALIN (*CRX) 75 MG CAPSULE PO ×2 (08:37→21:18)
[2025-06-30] MEDS: LORATADINE 10 MG TABLET PO (08:37)
[2025-06-30] MEDS: CITALOPRAM HYDROBROMIDE 20 MG TABLET PO ×2 (08:37→21:18)
[2025-06-30] MEDS: MONTELUKAST SODIUM 10 MG TABLET PO (08:37)
[2025-06-30] MEDS: AMANTADINE HCL 100 MG CAPSULE PO (08:37)
[2025-06-30] MEDS: cefTRIAXone 1 GM in SODIUM CHLORIDE 0.9% IV 50 ML 100 ML IVPB (08:37)
[2025-06-30] MEDS: AZITHROMYCIN IV 500 MG in SODIUM CHLORIDE 0.9% IV 250 ML IVPB (09:25)
--- NOTE | 2025-06-30 10:17 | PCRCNOTE ---
RT called to the room to assess pt with a low sat. upon arrival pt was on 8L NC with a sat of 92%, Rt switched to a venturi mask 40% 12L, since this pt has a hx of COPD, sat was 91% on the venturi. ABG postponed at this time per dr Nichols. Will continue to monitor pt.
--- NOTE | 2025-06-30 12:47 | PCSTNOTE ---
Please refer to the Bedside Swallow Evaluation in the EMR. Please note, silent aspiration cannot be ruled out at bedside.
--- NOTE | 2025-06-30 14:27 | PCSTNOTE ---
Please refer to the Modified Barium Swallow Evaluation in the EMR. The patient is a 60 year old female admitted with acute exacerbation of COPD on 4 liters oxygen with a history of CVA. Previous diet has been puree/ Level 4 and Moderately thick / Level 3. speech therapy was consulted to complete a BSE on 06/30/25 to r/o aspiration risk. Nurse had reported noting coughing with meals. Dysphagia indicated at BSE and MBS recommended. The patient was positioned upright and administered the following consistencies: 5cc/tsp moderately thick, cup trials moderately thick, and pudding mixed with barium paste. Oral Stage: Noted some lingual pumping and delayed oral preparation and transit due to lingual control with all consistencies. However able to maintain a cohesive bolus during swallow. Pharyngeal Stage: When presented tsp amounts of moderately thick liquid barium and small cup amounts of moderately thick liquid barium the patient was noted to have consistent laryngeal penetration due to reduced laryngeal elevation. The material entered the airway but remained above the vocal folds and was ejected. Trace residual remained in the valleculae due to reduced lingual pressure but was cleared independently by the patient with a repeat swallow. Recommend 1. Puree Diet / Level 4 2. Extremely Thick liquids / Level 4 3. Upright with meals 4. One on one supervision 5. No Straw 6. Speech services to provide exercises for lingual ROM and laryngeal elevation
--- NOTE | 2025-06-30 17:11 | PM.IMPN ---
Progress Note: A&P Assessment and Plan (1) Pneumonia involving left lung: Code(s): J18.9 - Pneumonia, unspecified organism Status: Acute (2) History of CVA (cerebrovascular accident) without residual deficits: Code(s): Z86.73 - Personal history of transient ischemic attack (TIA), and cerebral infarction without residual deficits Status: Acute (3) Dysphagia: Qualifiers: Dysphagia type: unspecified Qualified Code(s): R13.10 - Dysphagia, unspecified Code(s): R13.10 - Dysphagia, unspecified Status: Inactive (4) Acute exacerbation of chronic obstructive pulmonary disease (COPD): Code(s): J44.1 - Chronic obstructive pulmonary disease with (acute) exacerbation Status: Acute Plan 1. left lung interstitial infiltrate/edema - likely 2/2 pneumonia in the setting of COPD on 4 L nasal cannula at home - oxygen requirement at baseline - in the ED antibiotics started, blood culture collected and COVID/influenza - continue ceftriaxone and azithromycin - follow blood culture 2. COPD - O2 requirement at baseline less likely this is exacerbation - Continue home Wixela Inhub with prn albuterol - continue montelukast 3. dysphagia - continue pureed diet 4. history of CVA with right-sided deficit physical and occupational therapy Aspiration Patient on MBS today noted to have aspiration with laryngeal penetration Contineu Pureed diet and thickened liquid ST following DVT prophylaxis on Sq Lovenox Subjective Date/time seen: 06/30/25 17:11 Interval history: Comfortable at bedside MBS today passed her for pureed diet adn thickened liquid Review of Systems Review of Systems: All systems reviewed & are unremarkable except as noted in HPI and below ROS unobtainable: Yes unobtainable due to medical condition Exam Narrative: APPEARANCE: poor oral hygiene, obese, severe aphasia EYES: EOMI HEENT: Normocephalic, atraumatic, OMM RESPIRATORY: No respiratory distress Clear to auscultation bilaterally with no rhonchi wheezing or rales. CARDIOVASCULAR: RRR, S1 and S2 without murmurs rubs or gallops. ABDOMINAL: Soft, nontender, nondistended, no rebound or guarding MUSCULOSKELETAl: right-sided hemiplegic NEURO: Awake and alert. Following commands, aphasia, right-sided body paralyses SKIN:: Warm, dry. No rashes lesions or abrasions PSYCHIATRIC: anxious Objective Data Vital Signs Vital Signs: Vital Signs - 24 hr 06/29/25 20:00 06/29/25 20:00 06/29/25 20:12 Temperature Pulse Rate 103 H 101 H Respiratory Rate 20 Blood Pressure Pulse Oximetry 90 Oxygen Delivery Nasal Cannula Oxygen Flow Rate 5.5 Fraction of Inspired Oxygen 06/29/25 20:15 06/29/25 20:22 06/29/25 22:00 Temperature 97.9 F Pulse Rate 95 101 H 108 H Respiratory Rate 20 20 24 H Blood Pressure 116/73 Pulse Oximetry 101 H 90 Oxygen Delivery Nasal Cannula Oxygen Flow Rate 5 Fraction of Inspired Oxygen 40 06/30/25 00:00 06/30/25 01:35 06/30/25 01:41 Temperature Pulse Rate 98 99 99 Respiratory Rate 20 20 Blood Pressure Pulse Oximetry Oxygen Delivery Oxygen Flow Rate Fraction of Inspired Oxygen 06/30/25 04:00 06/30/25 06:00 06/30/25 08:00 Temperature 97.9 F Pulse Rate 89 84 Respiratory Rate 22 H Blood Pressure 112/70 Pulse Oximetry 94 92 Oxygen Delivery Nasal Cannula Oxygen Flow Rate 5 Fraction of Inspired Oxygen 06/30/25 08:00 06/30/25 08:13 06/30/25 08:17 Temperature Pulse Rate 88 89 90 Respiratory Rate 20 20 Blood Pressure Pulse Oximetry Oxygen Delivery Oxygen Flow Rate Fraction of Inspired Oxygen 06/30/25 09:17 06/30/25 09:25 06/30/25 12:00 Temperature Pulse Rate 95 93 96 Respiratory Rate 20 20 Blood Pressure Pulse Oximetry 92 91 Oxygen Delivery Nasal Cannula Venturi Mask Oxygen Flow Rate 8 12 Fraction of Inspired Oxygen 40 06/30/25 14:00 06/30/25 14:14 06/30/25 14:18 Temperature Pulse Rate 96 93 93 Respiratory Rate 16 20 20 Blood Pressure 106/73 Pulse Oximetry 93 93 Oxygen Delivery Nasal Cannula Oxygen Flow Rate 4 Fraction of Inspired Oxygen 06/30/25 14:26 Temperature Pulse Rate 95 Respiratory Rate 20 Blood Pressure Pulse Oximetry Oxygen Delivery Oxygen Flow Rate Fraction of Inspired Oxygen Intake/Output Intake/Output: Intake & Output 06/27/25 06/28/25 06/29/25 06/30/25 23:59 23:59 23:59 23:59 Intake Total 660 100 Output Total 550 Balance 660 -450 Meds/Results Medications: Active Medications Generic Name Dose Route Start Last Admin Trade Name Freq PRN Reason Stop Dose Admin Albuterol 1 puff 06/29/25 12:19 Albuterol Sulfate (*Sp) Aerosol 1 Puff INHALATION Q4H PRN Shortness Of Breath Or Wheezing Albuterol/Ipratropium 3 ml 06/29/25 14:00 06/30/25 14:14 Ipratropium 0.5 Mg/Albuterol Sulfate 2.5 Mg Ampul.Neb 3 Ml INHALATION 3 ml Q6HRT PIEDAD Administration Amantadine HCl 100 mg 06/30/25 09:00 06/30/25 08:37 Amantadine Hcl 100 Mg Capsule PO 100 mg DAILY PIEDAD Administration Atorvastatin Calcium 10 mg 06/29/25 21:00 06/29/25 20:30 Atorvastatin 10 Mg Tablet PO 10 mg HS PIEDAD Administration Citalopram Hydrobromide 20 mg 06/29/25 21:00 06/30/25 08:37 Citalopram Hydrobromide 20 Mg Tablet PO 20 mg Q12H PIEDAD Administration Azithromycin 500 mg/ Sodium 250 mls @ 250 mls/hr 06/30/25 09:00 06/30/25 09:25 Chloride IVPB 250 mls/hr DAILY PIEDAD Administration Ceftriaxone Sodium 1 gm/ 50 mls @ 100 mls/hr 06/30/25 09:00 06/30/25 08:37 Sodium Chloride IVPB 07/05/25 08:59 100 mls/hr DAILY PIEDAD Administration Loratadine 10 mg 06/30/25 09:00 06/30/25 08:37 Loratadine 10 Mg Tablet PO 10 mg QAM PIEDAD Administration Melatonin 5 mg 06/29/25 21:00 06/29/25 20:38 Melatonin 5 Mg Tablet PO 5 mg HS PIEDAD Administration Mirtazapine 15 mg 06/29/25 21:00 06/29/25 20:30 Mirtazapine 15 Mg Tablet PO 15 mg HS PIEDAD Administration Montelukast Sodium 10 mg 06/30/25 09:00 06/30/25 08:37 Montelukast Sodium 10 Mg Tablet PO 10 mg DAILY PIEDAD Administration Pregabalin 75 mg 06/29/25 21:00 06/30/25 08:37 Pregabalin (*Crx) 75 Mg Capsule PO 75 mg Q12H PIEDAD Administration Fluticasone/Salmeterol 2 puff 06/29/25 20:00 06/30/25 08:13 Fluticasone/Salmeterol 45-21 Mcg Inhaler 1 Puff INHALATION 2 puff Q12HRT PIEDAD Administration Radiology Results: ITS Impressions Chest X-Ray 06/30/25 09:55 Impression: CHF. Early basilar pneumonia suspected Modified Barium Swallow 06/30/25 14:24 IMPRESSION: Mild oropharyngeal dysphagia with laryngeal penetration without aspiration with moderately thickened liquids. Please correlate with speech pathologist findings and specific feeding recommendations. Labs Labs: Laboratory Results - last 24 hr 06/30/25 05:46 WBC 10.0 RBC 3.92 L Hgb 9.8 L Hct 34.0 L MCV 86.7 MCH 25.0 L MCHC 28.8 L RDW 17.0 H Plt Count 265 MPV 10.4 Quality VTE Prophylaxis VTE prophylaxis: pharmacologic ordered
[2025-06-30 17:38] LABS: Anion Gap 5 mmol/L (4-12); Blood Urea Nitrogen 24 mg/dL (7-17); Calcium 8.5 mg/dL (8.4-10.2); Carbon Dioxide 30 mmol/L (22-30); Chloride 108 mmol/L (98-107); Estimated CRCL calculation 83 ml/min; Estimated Glomerular Filt Rate > 60; Glucose 95 mg/dL (65-110); Potassium 4.1 mmol/L (3.4-5.0); Sodium 143 mmol/L (137-145)
[2025-06-30] MEDS: ATORVASTATIN 10 MG TABLET PO (21:18)
[2025-06-30] MEDS: MIRTAZAPINE 15 MG TABLET PO (21:18)
[2025-06-30] MEDS: MELATONIN 5 MG TABLET PO (21:18)
[2025-07-01] VITALS (23 sets, daily range): BP systolic 100–133; BP diastolic 66–73; PULSE 88–116; RESP 18–28; TEMP 36.1–37.6; O2SAT 85–93
[2025-07-01] MEDS: IPRATROPIUM 0.5 MG/ALBUTEROL SULFATE 2.5 MG AMPUL.NEB 3 ML INHALATION ×4 (02:20→19:18)
[2025-07-01 06:54] LABS: Hematocrit 33.1 % (37.0-47.0); Hemoglobin 9.5 g/dL (12.0-15.0); Immature Granulocyte Percent A 0.3 % (0-0.5); Lymphocytes Absolute Auto 1.96 K/mm3 (0.9-3.2); Mean Corpuscular HGB Conc 28.7 g/dl (32-36); Mean Corpuscular Hemoglobin 25.1 pg (26-34); Mean Corpuscular Volume 87.3 fl (80-100); Nucleated Red Blood Cells Absolute Auto 0.000 K/mm3 (0.0-0.012); Nucleated Red Blood Cells Perc 0.0 % (0.0-0.2); Platelet Count Result 253 k/mm3 (150-375); Red Blood Count 3.79 M/mm3 (4.2-5.4); White Blood Count 8.6 K/mm3 (4.5-10.0)
[2025-07-01 07:16] LABS: Alanine Aminotransferase 18 U/L (6-35); Albumin Level 3.5 g/dL (3.5-5.1); Alkaline Phosphatase 162 U/L (38-126); Anion Gap 1 mmol/L (4-12); Aspartate Amino Transferase 31 U/L (14-36); Bilirubin,Total 0.2 mg/dL (0.2-1.3); Blood Urea Nitrogen 22 mg/dL (7-17); Calcium 8.4 mg/dL (8.4-10.2); Carbon Dioxide 30 mmol/L (22-30); Chloride 108 mmol/L (98-107); Estimated CRCL calculation 94 ml/min; Estimated Glomerular Filt Rate > 60; Glucose 98 mg/dL (65-110); Magnesium 2.5 mg/dL (1.6-2.3); Potassium 3.9 mmol/L (3.4-5.0); Sodium 139 mmol/L (137-145); Total Protein 7.2 g/dL (6.3-8.2)
[2025-07-01] MEDS: FLUTICASONE/SALMETEROL 45-21 MCG INHALER 1 PUFF 2 PUFF INHALATION (07:23)
[2025-07-01 07:28] LABS: Anisocytosis 1+; Hypochromasia 1+
[2025-07-01 07:29] LABS: Schistocytes None Seen; Stomatocytes Occasional
[2025-07-01 08:16] LABS: Iron 22 ug/dL (37-170)
[2025-07-01 08:26] LABS: Percent Iron Saturation 6 % (20-50)
[2025-07-01 08:57] LABS: Ferritin 13.30 ng/mL (11.1-264)
[2025-07-01] MEDS: CITALOPRAM HYDROBROMIDE 20 MG TABLET PO (09:53)
[2025-07-01] MEDS: LORATADINE 10 MG TABLET PO (09:54)
[2025-07-01] MEDS: MONTELUKAST SODIUM 10 MG TABLET PO (09:54)
[2025-07-01] MEDS: AZITHROMYCIN IV 500 MG in SODIUM CHLORIDE 0.9% IV 250 ML IVPB (09:54)
[2025-07-01] MEDS: PREGABALIN (*CRX) 75 MG CAPSULE PO (09:54)
[2025-07-01] MEDS: AMANTADINE HCL 100 MG CAPSULE PO (09:54)
[2025-07-01] MEDS: cefTRIAXone 1 GM in SODIUM CHLORIDE 0.9% IV 50 ML 100 ML IVPB (09:55)
[2025-07-01] MEDS: ENOXAPARIN 40 MG/0.4 ML SYRINGE SUB-Q (10:05)
--- NOTE | 2025-07-01 11:52 | PM.IMPN ---
Progress Note: A&P Assessment and Plan (1) Pneumonia involving left lung: Code(s): J18.9 - Pneumonia, unspecified organism Status: Acute (2) History of CVA (cerebrovascular accident) without residual deficits: Code(s): Z86.73 - Personal history of transient ischemic attack (TIA), and cerebral infarction without residual deficits Status: Acute (3) Dysphagia: Qualifiers: Dysphagia type: unspecified Qualified Code(s): R13.10 - Dysphagia, unspecified Code(s): R13.10 - Dysphagia, unspecified Status: Inactive (4) Acute exacerbation of chronic obstructive pulmonary disease (COPD): Code(s): J44.1 - Chronic obstructive pulmonary disease with (acute) exacerbation Status: Acute Plan 1. left lung interstitial infiltrate/edema - likely 2/2 pneumonia in the setting of COPD on 4 L nasal cannula at home - oxygen requirement at baseline - blood culture collected and COVID/influenza - continue ceftriaxone and azithromycin - follow blood culture 2. COPD - O2 requirement at baseline less likely this is exacerbation - Continue home Wixela Inhub with prn albuterol - continue montelukast 3. dysphagia - continue pureed diet 4. history of CVA with right-sided deficit physical and occupational therapy 5. Possible Aspiration Patient on MBS today noted to have aspiration with laryngeal penetration Continue Pureed diet and thickened liquid ST following Iron deficiency anemia Hb 9.5, Isat 5, and Ferritin 13 Started IV Iron 500/1000 Acute on chronic resp failure From PNA 4 liters at baseline, now on 5 liters DVT prophylaxis on Sq Lovenox Possible discharge tomorrow Subjective Date/time seen: 07/01/25 11:52 Interval history: Comfortable at bedside Monitor one more day Review of Systems Review of Systems: All systems reviewed & are unremarkable except as noted in HPI and below ROS unobtainable: Yes unobtainable due to medical condition Exam Narrative: APPEARANCE: poor oral hygiene, obese, severe aphasia EYES: EOMI HEENT: Normocephalic, atraumatic, OMM RESPIRATORY: No respiratory distress Clear to auscultation bilaterally with no rhonchi wheezing or rales. CARDIOVASCULAR: RRR, S1 and S2 without murmurs rubs or gallops. ABDOMINAL: Soft, nontender, nondistended, no rebound or guarding MUSCULOSKELETAl: right-sided hemiplegic NEURO: Awake and alert. Following commands, aphasia, right-sided body paralyses SKIN:: Warm, dry. No rashes lesions or abrasions PSYCHIATRIC: anxious Objective Data Vital Signs Vital Signs: Vital Signs - 24 hr 06/30/25 12:00 06/30/25 14:00 06/30/25 14:14 Temperature Pulse Rate 96 96 93 Respiratory Rate 16 20 Blood Pressure 106/73 Pulse Oximetry 93 Oxygen Delivery Oxygen Flow Rate 06/30/25 14:18 06/30/25 14:26 06/30/25 16:00 Temperature Pulse Rate 93 95 90 Respiratory Rate 20 20 Blood Pressure Pulse Oximetry 93 Oxygen Delivery Nasal Cannula Oxygen Flow Rate 4 06/30/25 20:00 06/30/25 20:00 06/30/25 20:23 Temperature 97.6 F Pulse Rate 100 98 Respiratory Rate 18 Blood Pressure 107/66 Pulse Oximetry 92 91 Oxygen Delivery Nasal Cannula Oxygen Flow Rate 5 06/30/25 21:40 06/30/25 21:53 07/01/25 00:00 Temperature Pulse Rate 89 90 99 Respiratory Rate 20 20 Blood Pressure Pulse Oximetry Oxygen Delivery Oxygen Flow Rate 07/01/25 02:20 07/01/25 02:30 07/01/25 05:13 Temperature 97.0 F L Pulse Rate 92 89 96 Respiratory Rate 20 18 Blood Pressure 100/66 Pulse Oximetry 93 Oxygen Delivery Oxygen Flow Rate 07/01/25 07:28 07/01/25 07:29 07/01/25 07:38 Temperature Pulse Rate 88 90 Respiratory Rate 24 H 24 H Blood Pressure Pulse Oximetry 88 L Oxygen Delivery Nasal Cannula Oxygen Flow Rate 5 07/01/25 08:00 07/01/25 08:00 Temperature Pulse Rate 92 Respiratory Rate Blood Pressure Pulse Oximetry 90 Oxygen Delivery Nasal Cannula Oxygen Flow Rate 5 Intake/Output Intake/Output: Intake & Output 06/28/25 06/29/25 06/30/25 07/01/25 23:59 23:59 23:59 23:59 Intake Total 660 520 420 Output Total 550 600 Balance 677 -30 180 Meds/Results Medications: Active Medications Generic Name Dose Route Start Last Admin Trade Name Freq PRN Reason Stop Dose Admin Albuterol 1 puff 06/29/25 12:19 Albuterol Sulfate (*Sp) Aerosol 1 Puff INHALATION Q4H PRN Shortness Of Breath Or Wheezing Albuterol/Ipratropium 3 ml 06/29/25 14:00 07/01/25 07:22 Ipratropium 0.5 Mg/Albuterol Sulfate 2.5 Mg Ampul.Neb 3 Ml INHALATION 3 ml Q6HRT PIEDAD Administration Amantadine HCl 100 mg 06/30/25 09:00 07/01/25 09:54 Amantadine Hcl 100 Mg Capsule PO 100 mg DAILY PIEDAD Administration Atorvastatin Calcium 10 mg 06/29/25 21:00 06/30/25 21:18 Atorvastatin 10 Mg Tablet PO 10 mg HS PIEDAD Administration Citalopram Hydrobromide 20 mg 06/29/25 21:00 07/01/25 09:53 Citalopram Hydrobromide 20 Mg Tablet PO 20 mg Q12H PEIDAD Administration Enoxaparin Sodium 40 mg 07/01/25 09:00 07/01/25 10:05 Enoxaparin 40 Mg/0.4 Ml Syringe SUB-Q 40 mg DAILY PIEDAD Administration Azithromycin 500 mg/ Sodium 250 mls @ 250 mls/hr 06/30/25 09:00 07/01/25 10:54 Chloride IVPB Infused DAILY PIEDAD Infusion Ceftriaxone Sodium 1 gm/ 50 mls @ 100 mls/hr 06/30/25 09:00 07/01/25 10:25 Sodium Chloride IVPB 07/05/25 08:59 Infused DAILY PIEDAD Infusion Loratadine 10 mg 06/30/25 09:00 07/01/25 09:54 Loratadine 10 Mg Tablet PO 10 mg QAM PIEDAD Administration Melatonin 5 mg 06/29/25 21:00 06/30/25 21:18 Melatonin 5 Mg Tablet PO 5 mg HS PIEDAD Administration Mirtazapine 15 mg 06/29/25 21:00 06/30/25 21:18 Mirtazapine 15 Mg Tablet PO 15 mg HS PIEDAD Administration Montelukast Sodium 10 mg 06/30/25 09:00 07/01/25 09:54 Montelukast Sodium 10 Mg Tablet PO 10 mg DAILY PIEDAD Administration Pregabalin 75 mg 06/29/25 21:00 07/01/25 09:54 Pregabalin (*Crx) 75 Mg Capsule PO 75 mg Q12H PIEDAD Administration Fluticasone/Salmeterol 2 puff 06/29/25 20:00 07/01/25 07:23 Fluticasone/Salmeterol 45-21 Mcg Inhaler 1 Puff INHALATION 2 puff Q12HRT PIEDAD Administration Radiology Results: ITS Impressions Chest X-Ray 06/30/25 09:55 Impression: CHF. Early basilar pneumonia suspected Modified Barium Swallow 06/30/25 14:24 IMPRESSION: Mild oropharyngeal dysphagia with laryngeal penetration without aspiration with moderately thickened liquids. Please correlate with speech pathologist findings and specific feeding recommendations. Labs Labs: Laboratory Results - last 24 hr 06/30/25 07/01/25 07/01/25 17:12 06:00 06:03 WBC 8.6 RBC 3.79 L Hgb 9.5 L Hct 33.1 L MCV 87.3 MCH 25.1 L MCHC 28.7 L RDW 17.1 H Plt Count 253 MPV 10.6 H Immature Gran % (Auto) 0.3 Neut % (Auto) 65.9 Lymph % (Auto) 22.7 Price % (Auto) 8.3 Eos % (Auto) 2.3 Baso % (Auto) 0.5 Lymph # (Auto) 1.96 Price # (Auto) 0.7 H Eos # (Auto) 0.2 Baso # (Auto) 0.0 Abs Immat Gran (auto) 0.03 Absolute Neuts (auto) 5.7 Absolute Nucleated RBC 0.000 Band Neutrophils % Not Reportable Nucleated RBC % 0.0 Platelet Estimate Adequate Hypochromasia 1+ Anisocytosis 1+ Stomatocytes Occasional Schistocytes None seen Sodium 143 139 Potassium 4.1 3.9 Chloride 108 H 108 H Carbon Dioxide 30 30 Anion Gap 5 1 L BUN 24 H 22 H Creatinine 0.65 L 0.57 L Estim Creat Clear Calc 83 94 Estimated GFR > 60 > 60 Glucose 95 98 Calcium 8.5 8.4 Magnesium 2.5 H Iron 22 L TIBC 345 % Saturation 6 L Ferritin 13.30 Total Bilirubin 0.2 AST 31 ALT 18 Alkaline Phosphatase 162 H Total Protein 7.2 Albumin 3.5 Quality VTE Prophylaxis VTE prophylaxis: pharmacologic ordered
[2025-07-01] MEDS: IRON SUCROSE COMPLEX 400 MG, IRON SUCROSE COMPLEX 100 MG in SODIUM CHLORIDE 0.9% IV 250 ML 78.57 MG IVPB (13:01)
[2025-07-01 17:36] LABS: Anion Gap 8 mmol/L (4-12); Blood Urea Nitrogen 23 mg/dL (7-17); Calcium 8.6 mg/dL (8.4-10.2); Carbon Dioxide 28 mmol/L (22-30); Chloride 108 mmol/L (98-107); Estimated CRCL calculation 75 ml/min; Estimated Glomerular Filt Rate > 60; Glucose 123 mg/dL (65-110); Potassium 4.7 mmol/L (3.4-5.0); Sodium 144 mmol/L (137-145)
[2025-07-01 20:05] LABS: Alveolar/Arterial O2 Gradient 246.1 mmHg; Fractional Inspired Oxygen 50 %; HCO3 ABG 29.4 mEq/l (22.0-26.0); Oxygen Content ABG 13.8 %vol (16.0-22.0); PCO2 ABG 50.9 mmHg (35.0-45.0); PO2 ABG 53.1 mmHg (80.0-100.0); PO2 FiO2 Ratio Arterial Blood 1.06 %
--- NOTE | 2025-07-01 20:19 | P.PNCROSS_ITS ---
Event Note Event Note Event Note: It was reported that the patient had choked on some food and aspirated. Carito mireles's O2 saturations were in the low 80 percentile. She does have a history of COPD. Large amount of aspirated food was obtained through oropharyngeal suctioning. The patient initially was placed on oxygen at 6 L per nasal cannula. Chest x-ray and ABGs were performed. Chest x-ray appears to have pulmonary edema to the left lung. No official read per Radiology at this time. Solu-Medrol and Lasix ordered. Patient is currently on an Airvo at 60%. I discussed the situation with her [id number] Tanisha baldwin was also her mother. The power of banking attorney stated that she is considering a G-tube with tube feedings again. Although the patient is a do not resuscitate she would like for us to maintain the patient's oxygen level. She declined any comfort measures at this time. It was decided to move the patient to IMU for continuous use of Airvo. She was made NPO at this time. The patient does follow commands but is not able to take a deep breath in after cough deeply. She has a very weak cough.
[2025-07-01 20:39] LABS: Modified Allen's Test Pass; Oxygen Saturation ABG 86.5 % (95.0-100.0); Site Drawn LEFT RADIAL
[2025-07-01 20:40] LABS: Liters per Minute 60.0 LPM
[2025-07-01] MEDS: FUROSEMIDE INJ 40 MG/4 ML VIAL 20 MG IV PUSH (20:43)
[2025-07-02] VITALS (25 sets, daily range): BP systolic 108–125; BP diastolic 60–71; PULSE 88–102; RESP 18–26; TEMP 36.7–37.2; O2SAT 85–95
[2025-07-02] MEDS: IPRATROPIUM 0.5 MG/ALBUTEROL SULFATE 2.5 MG AMPUL.NEB 3 ML INHALATION ×4 (02:50→20:15)
[2025-07-02 04:33] LABS: Hematocrit 34.7 % (37.0-47.0); Hemoglobin 9.9 g/dL (12.0-15.0); Immature Granulocyte Percent A 1.0 % (0-0.5); Lymphocytes Absolute Auto 0.80 K/mm3 (0.9-3.2); Mean Corpuscular HGB Conc 28.5 g/dl (32-36); Mean Corpuscular Hemoglobin 24.3 pg (26-34); Mean Corpuscular Volume 85.3 fl (80-100); Nucleated Red Blood Cells Absolute Auto 0.000 K/mm3 (0.0-0.012); Nucleated Red Blood Cells Perc 0.0 % (0.0-0.2); Platelet Count Result 262 k/mm3 (150-375); Red Blood Count 4.07 M/mm3 (4.2-5.4); White Blood Count 9.1 K/mm3 (4.5-10.0)
[2025-07-02 04:58] LABS: Alanine Aminotransferase 24 U/L (6-35); Albumin Level 3.7 g/dL (3.5-5.1); Alkaline Phosphatase 177 U/L (38-126); Anion Gap 6 mmol/L (4-12); Aspartate Amino Transferase 37 U/L (14-36); Bilirubin,Total 0.3 mg/dL (0.2-1.3); Blood Urea Nitrogen 26 mg/dL (7-17); Calcium 8.7 mg/dL (8.4-10.2); Carbon Dioxide 30 mmol/L (22-30); Chloride 107 mmol/L (98-107); Estimated CRCL calculation 81 ml/min; Estimated Glomerular Filt Rate > 60; Glucose 152 mg/dL (65-110); Magnesium 2.4 mg/dL (1.6-2.3); Potassium 3.8 mmol/L (3.4-5.0); Sodium 143 mmol/L (137-145); Total Protein 7.8 g/dL (6.3-8.2)
[2025-07-02 05:02] LABS: Hypochromasia 2+
[2025-07-02 05:03] LABS: Anisocytosis Occasional; Schistocytes None Seen
[2025-07-02] MEDS: FLUTICASONE/SALMETEROL 45-21 MCG INHALER 1 PUFF 2 PUFF INHALATION ×2 (08:20→20:15)
[2025-07-02] MEDS: cefTRIAXone 1 GM in SODIUM CHLORIDE 0.9% IV 50 ML 100 ML IVPB (08:39)
[2025-07-02] MEDS: AZITHROMYCIN IV 500 MG in SODIUM CHLORIDE 0.9% IV 250 ML IVPB (08:39)
[2025-07-02] MEDS: ENOXAPARIN 40 MG/0.4 ML SYRINGE SUB-Q (08:39)
[2025-07-02] MEDS: IRON SUCROSE COMPLEX 400 MG, IRON SUCROSE COMPLEX 100 MG in SODIUM CHLORIDE 0.9% IV 250 ML 78.57 MG IVPB (12:50)
--- NOTE | 2025-07-02 14:24 | P.PNIM_ITS ---
Progress Note: A&P Assessment and Plan (1) Pneumonia involving left lung: Code(s): J18.9 - Pneumonia, unspecified organism Status: Acute (2) History of CVA (cerebrovascular accident) without residual deficits: Code(s): Z86.73 - Personal history of transient ischemic attack (TIA), and cerebral infarction without residual deficits Status: Acute (3) Dysphagia: Qualifiers: Dysphagia type: unspecified Qualified Code(s): R13.10 - Dysphagia, unspecified Code(s): R13.10 - Dysphagia, unspecified Status: Inactive (4) Acute exacerbation of chronic obstructive pulmonary disease (COPD): Code(s): J44.1 - Chronic obstructive pulmonary disease with (acute) exacerbation Status: Acute Plan 1. Aspiration pneumonia - likely 2/2 pneumonia in the setting of COPD on 4 L nasal cannula at home patient now on Airvo F/u blood culture - continue ceftriaxone and azithromycin, Flagyl added Pulmonology consulted Will discuss Tube feeding, NPO for now 2. COPD - O2 requirement at baseline less likely this is exacerbation - Continue home Wixela Inhub with prn albuterol - continue montelukast 3. dysphagia - continue pureed diet 4. history of CVA with right-sided deficit physical and occupational therapy Iron deficiency anemia Hb 9.9, Isat 5, and Ferritin 13 Started IV Iron 1000/1000mg, now iron replete Acute on chronic resp failure 4 liters at baseline from severe bilateral aspiration Now on Airvo pulmonology consulted DVT prophylaxis on Sq Lovenox Subjective Date/time seen: 07/02/25 14:24 Interval history: Comfortable at bedside Patient had an aspiration event last night with severe respiratory decompensation CT Chest showed large bilateral aspiration and left upper lobe aspiration Review of Systems Review of Systems: All systems reviewed & are unremarkable except as noted in HPI and below ROS unobtainable: Yes unobtainable due to medical condition Exam Narrative: APPEARANCE: poor oral hygiene, obese, severe aphasia EYES: EOMI HEENT: Normocephalic, atraumatic, OMM RESPIRATORY: No respiratory distress Clear to auscultation bilaterally with no rhonchi wheezing or rales. CARDIOVASCULAR: RRR, S1 and S2 without murmurs rubs or gallops. ABDOMINAL: Soft, nontender, nondistended, no rebound or guarding MUSCULOSKELETAl: right-sided hemiplegic NEURO: Awake and alert. Following commands, aphasia, right-sided body paralyses SKIN:: Warm, dry. No rashes lesions or abrasions PSYCHIATRIC: anxious Objective Data Vital Signs Vital Signs: Vital Signs - 24 hr 07/01/25 16:00 07/01/25 19:18 07/01/25 19:26 Temperature Pulse Rate 88 100 104 H Respiratory Rate 24 H 26 H Blood Pressure Pulse Oximetry Oxygen Delivery Oxygen Flow Rate Fraction of Inspired Oxygen 07/01/25 19:45 07/01/25 20:00 07/01/25 20:00 Temperature Pulse Rate 105 H 106 H Respiratory Rate 26 H Blood Pressure Pulse Oximetry 91 85 L Oxygen Delivery High Flow Therapy with Na High Flow Therapy with Na Oxygen Flow Rate 60 60 Fraction of Inspired Oxygen 100 07/01/25 20:17 07/01/25 20:18 07/01/25 21:56 Temperature 99.6 F Pulse Rate 105 H 103 H 104 H Respiratory Rate 20 Blood Pressure 133/72 Pulse Oximetry 86 L 88 L 90 Oxygen Delivery High Flow Therapy with Na High Flow Therapy with Na Oxygen Flow Rate 60 60 Fraction of Inspired Oxygen 60 80 07/01/25 22:23 07/01/25 22:23 07/01/25 23:00 Temperature Pulse Rate 104 H Respiratory Rate Blood Pressure Pulse Oximetry 85 L 89 L Oxygen Delivery High Flow Therapy with Na High Flow Therapy with Na Oxygen Flow Rate 60 60 Fraction of Inspired Oxygen 95 07/02/25 00:00 07/02/25 00:00 07/02/25 00:59 Temperature Pulse Rate 97 97 Respiratory Rate 20 Blood Pressure 110/71 Pulse Oximetry 91 92 Oxygen Delivery High Flow Therapy with Na Oxygen Flow Rate 60 Fraction of Inspired Oxygen 95 07/02/25 01:31 07/02/25 02:00 07/02/25 02:50 Temperature Pulse Rate 93 97 Respiratory Rate 26 H Blood Pressure Pulse Oximetry 87 L Oxygen Delivery High Flow Therapy with Na Oxygen Flow Rate 60 Fraction of Inspired Oxygen 93 07/02/25 03:20 07/02/25 04:00 07/02/25 04:00 Temperature 98.6 F Pulse Rate 97 94 96 Respiratory Rate 20 Blood Pressure 108/69 Pulse Oximetry 91 92 Oxygen Delivery High Flow Therapy with Na Oxygen Flow Rate 60 Fraction of Inspired Oxygen 95 07/02/25 04:00 07/02/25 05:03 07/02/25 06:00 Temperature Pulse Rate 92 93 Respiratory Rate 24 H Blood Pressure Pulse Oximetry 92 92 Oxygen Delivery High Flow Therapy with Na High Flow Therapy with Na Oxygen Flow Rate 60 60 Fraction of Inspired Oxygen 95 95 07/02/25 08:00 07/02/25 08:00 07/02/25 08:00 Temperature 98.9 F Pulse Rate 92 90 Respiratory Rate 20 Blood Pressure 121/70 Pulse Oximetry 95 92 Oxygen Delivery High Flow Therapy with Na Oxygen Flow Rate 60 Fraction of Inspired Oxygen 95 07/02/25 08:20 07/02/25 08:23 07/02/25 08:37 Temperature Pulse Rate 88 88 96 Respiratory Rate 22 H 22 H 22 H Blood Pressure Pulse Oximetry 92 Oxygen Delivery High Flow Therapy with Na Oxygen Flow Rate 60 Fraction of Inspired Oxygen 92 07/02/25 10:00 07/02/25 12:00 07/02/25 12:00 Temperature 99 F Pulse Rate 92 92 Respiratory Rate 18 Blood Pressure 121/60 Pulse Oximetry 94 92 Oxygen Delivery High Flow Therapy with Na Oxygen Flow Rate 60 Fraction of Inspired Oxygen 95 07/02/25 12:00 07/02/25 13:33 07/02/25 14:00 Temperature Pulse Rate 96 97 100 Respiratory Rate 22 H Blood Pressure Pulse Oximetry Oxygen Delivery Oxygen Flow Rate Fraction of Inspired Oxygen Intake/Output Intake/Output: Intake & Output 06/29/25 06/30/25 07/01/25 07/02/25 23:59 23:59 23:59 23:59 Intake Total 660 520 540 Output Total 550 750 Balance 660 -30 210 Meds/Results Medications: Active Medications Generic Name Dose Route Start Last Admin Trade Name Freq PRN Reason Stop Dose Admin Albuterol 1 puff 06/29/25 12:19 Albuterol Sulfate (*Sp) Aerosol 1 Puff INHALATION Q4H PRN Shortness Of Breath Or Wheezing Albuterol/Ipratropium 3 ml 06/29/25 14:00 07/02/25 13:33 Ipratropium 0.5 Mg/Albuterol Sulfate 2.5 Mg Ampul.Neb 3 Ml INHALATION 3 ml Q6HRT [facility] Administration Amantadine HCl 100 mg 06/30/25 09:00 07/02/25 12:05 Amantadine Hcl 100 Mg Capsule PO Not Given DAILY [facility] Atorvastatin Calcium 10 mg 06/29/25 21:00 07/01/25 21:48 Atorvastatin 10 Mg Tablet PO Not Given HS [facility] Citalopram Hydrobromide 20 mg 06/29/25 21:00 07/02/25 12:05 Citalopram Hydrobromide 20 Mg Tablet PO Not Given Q12H [facility] Enoxaparin Sodium 40 mg 07/01/25 09:00 07/02/25 08:39 Enoxaparin 40 Mg/0.4 Ml Syringe SUB-Q 40 mg DAILY [facility] Administration Azithromycin 500 mg/ Sodium 250 mls @ 250 mls/hr 06/30/25 09:00 07/02/25 08:39 Chloride IVPB 07/03/25 09:59 250 mls/hr DAILY [facility] Administration Ceftriaxone Sodium 1 gm/ 50 mls @ 100 mls/hr 06/30/25 09:00 07/02/25 08:39 Sodium Chloride IVPB 07/05/25 08:59 100 mls/hr DAILY [facility] Administration Loratadine 10 mg 06/30/25 09:00 07/02/25 12:05 Loratadine 10 Mg Tablet PO Not Given QAM [facility] Melatonin 5 mg 06/29/25 21:00 07/01/25 21:48 Melatonin 5 Mg Tablet PO Not Given HS [facility] Methylprednisolone Sodium Succinate 60 mg 07/02/25 06:00 07/02/25 05:47 Methylprednisolone Sod Succ 125 Mg Vial IV PUSH 60 mg Q8HR [facility] Administration Mirtazapine 15 mg 06/29/25 21:00 07/01/25 21:48 Mirtazapine 15 Mg Tablet PO Not Given HS [facility] Montelukast Sodium 10 mg 06/30/25 09:00 07/02/25 12:05 Montelukast Sodium 10 Mg Tablet PO Not Given DAILY [facility] Pregabalin 75 mg 06/29/25 21:00 07/02/25 12:05 Pregabalin (*Crx) 75 Mg Capsule PO Not Given Q12H [facility] Fluticasone/Salmeterol 2 puff 06/29/25 20:00 07/02/25 08:20 Fluticasone/Salmeterol 45-21 Mcg Inhaler 1 Puff INHALATION 2 puff Q12HRT [facility] Administration Radiology Results: ITS Impressions Modified Barium Swallow 06/30/25 14:24 IMPRESSION: Mild oropharyngeal dysphagia with laryngeal penetration without aspiration with moderately thickened liquids. Please correlate with speech pathologist findings and specific feeding recommendations. Chest X-Ray 10/01/25 20:37 IMPRESSION: 1. Small lung volumes with improvement of opacities at the bilateral lung bases which could represent atelectasis or pneumonia. Chest CTA 07/02/25 12:05 IMPRESSION: 1. Large bilateral aspiration. Bilateral lower lobe bronchial occlusive debris. 2. Left upper lobe aspiration and/or airspace disease. 3. No PE. 4. T4 compression fracture. Labs Labs: Laboratory Results - last 24 hr 07/01/25 07/01/25 07/02/25 17:06 19:58 04:14 WBC 9.1 RBC 4.07 L Hgb 9.9 L Hct 34.7 L MCV 85.3 MCH 24.3 L MCHC 28.5 L RDW 17.2 H Plt Count 262 MPV 10.5 H Immature Gran % (Auto) 1.0 H Neut % (Auto) 89.1 H Lymph % (Auto) 8.8 L [place] % (Auto) 0.9 L Eos % (Auto) 0.0 Baso % (Auto) 0.2 Lymph # (Auto) 0.80 L [place] # (Auto) 0.1 Eos # (Auto) 0.0 Baso # (Auto) 0.0 Abs Immat Gran (auto) 0.09 H Absolute Neuts (auto) 8.1 H Absolute Nucleated RBC 0.000 Band Neutrophils % Not Reportable Nucleated RBC % 0.0 Platelet Estimate Adequate Hypochromasia 2+ Anisocytosis Occasional Schistocytes None seen Puncture Site Left radial ABG pH 7.380 ABG pCO2 50.9 H ABG pO2 53.1 L ABG PO2/FiO2 Ratio 1.06 ABG HCO3 29.4 H ABG O2 Saturation 86.5 L* ABG O2 Content 13.8 L ABG Base Excess 3.5 A-a Gradient 246.1 Oxyhemoglobin 86.1 L* Total Hemoglobin 11.4 L O2 Delivery Device High flow nasal raheem O2 Liters/Min 60.0 FiO2 50 Sodium 144 143 Potassium 4.7 3.8 Chloride 108 H 107 Carbon Dioxide 28 30 Anion Gap 8 6 BUN 23 H 26 H Creatinine 0.73 0.67 L Estim Creat Clear Calc 75 81 Estimated GFR > 60 > 60 Glucose 123 H 152 H Calcium 8.6 8.7 Magnesium 2.4 H Total Bilirubin 0.3 AST 37 H ALT 24 Alkaline Phosphatase 177 H Total Protein 7.8 Albumin 3.7 Quality VTE Prophylaxis VTE prophylaxis: pharmacologic ordered
[2025-07-02] MEDS: MORPHINE SULFATE (*CRX) 4 MG/ML INJ 2 MG IV PUSH (16:41)
[2025-07-02] MEDS: metroNIDAZOLE 500 MG/ISO 100ML 500 MG/100 ML BAG 100 MG IVPB ×2 (16:42→21:56)
[2025-07-02 18:03] LABS: Anion Gap 6 mmol/L (4-12); Blood Urea Nitrogen 19 mg/dL (7-17); Calcium 8.9 mg/dL (8.4-10.2); Carbon Dioxide 29 mmol/L (22-30); Chloride 109 mmol/L (98-107); Estimated CRCL calculation 105 ml/min; Estimated Glomerular Filt Rate > 60; Glucose 123 mg/dL (65-110); Potassium 4.0 mmol/L (3.4-5.0); Sodium 144 mmol/L (137-145)
[2025-07-03] VITALS (20 sets, daily range): BP systolic 113–127; BP diastolic 54–77; PULSE 76–105; RESP 17–24; TEMP 36.4–37.2; O2SAT 89–100
[2025-07-03] MEDS: IPRATROPIUM 0.5 MG/ALBUTEROL SULFATE 2.5 MG AMPUL.NEB 3 ML INHALATION ×2 (02:16→07:59)
[2025-07-03 04:31] LABS: Hematocrit 35.2 % (37.0-47.0); Hemoglobin 10.2 g/dL (12.0-15.0); Immature Granulocyte Percent A 1.7 % (0-0.5); Lymphocytes Absolute Auto 0.85 K/mm3 (0.9-3.2); Mean Corpuscular HGB Conc 29.0 g/dl (32-36); Mean Corpuscular Hemoglobin 24.7 pg (26-34); Mean Corpuscular Volume 85.2 fl (80-100); Nucleated Red Blood Cells Absolute Auto 0.000 K/mm3 (0.0-0.012); Nucleated Red Blood Cells Perc 0.0 % (0.0-0.2); Platelet Count Result 287 k/mm3 (150-375); Red Blood Count 4.13 M/mm3 (4.2-5.4); White Blood Count 9.9 K/mm3 (4.5-10.0)
[2025-07-03 04:48] LABS: Alanine Aminotransferase 33 U/L (6-35); Albumin Level 3.8 g/dL (3.5-5.1); Alkaline Phosphatase 161 U/L (38-126); Anion Gap 4 mmol/L (4-12); Aspartate Amino Transferase 40 U/L (14-36); Bilirubin,Total 0.3 mg/dL (0.2-1.3); Blood Urea Nitrogen 22 mg/dL (7-17); Calcium 9.3 mg/dL (8.4-10.2); Carbon Dioxide 30 mmol/L (22-30); Chloride 110 mmol/L (98-107); Estimated CRCL calculation 100 ml/min; Estimated Glomerular Filt Rate > 60; Glucose 139 mg/dL (65-110); Magnesium 2.6 mg/dL (1.6-2.3); Potassium 4.0 mmol/L (3.4-5.0); Sodium 144 mmol/L (137-145); Total Protein 7.9 g/dL (6.3-8.2)
[2025-07-03] MEDS: metroNIDAZOLE 500 MG/ISO 100ML 500 MG/100 ML BAG 100 MG IVPB (05:50)
[2025-07-03] MEDS: MORPHINE SULFATE (*CRX) 4 MG/ML INJ 2 MG IV PUSH ×3 (06:10→21:47)
[2025-07-03] MEDS: FLUTICASONE/SALMETEROL 45-21 MCG INHALER 1 PUFF 2 PUFF INHALATION (07:59)
[2025-07-03 08:32] LABS: CRP 3.8 mg/dL (<1.0)
[2025-07-03 08:40] LABS: NT Pro B Type Natriuretic Pept 880 pg/mL (19.9-100)
[2025-07-03] MEDS: AZITHROMYCIN IV 500 MG in SODIUM CHLORIDE 0.9% IV 250 ML IVPB (08:42)
[2025-07-03] MEDS: cefTRIAXone 1 GM in SODIUM CHLORIDE 0.9% IV 50 ML 100 ML IVPB (08:42)
[2025-07-03] MEDS: ENOXAPARIN 40 MG/0.4 ML SYRINGE SUB-Q (08:43)
[2025-07-03 08:46] LABS: Procalcitonin 0.1 ng/mL
--- NOTE | 2025-07-03 09:14 | PCSTNOTE ---
BSE attempted this date due to aspiration event the past evening; however, it was not completed due to RN hold. Upon SOFTWARE MANAGER arrival, RN (Lawanda) reports pt is currently requiring a significant amount of oxygen support (Airvo and Non Rebreather). Therefore, pt is not appropriate for a bedside swallow evaluation this date. RN also reports pt and family are discussing hospice at this time.
--- NOTE | 2025-07-03 13:21 | P.PNIM_ITS ---
Progress Note: A&P Assessment and Plan (1) Pneumonia involving left lung: Code(s): J18.9 - Pneumonia, unspecified organism Status: Acute (2) History of CVA (cerebrovascular accident) without residual deficits: Code(s): Z86.73 - Personal history of transient ischemic attack (TIA), and cerebral infarction without residual deficits Status: Acute (3) Dysphagia: Qualifiers: Dysphagia type: unspecified Qualified Code(s): R13.10 - Dysphagia, unspecified Code(s): R13.10 - Dysphagia, unspecified Status: Inactive (4) Acute exacerbation of chronic obstructive pulmonary disease (COPD): Code(s): J44.1 - Chronic obstructive pulmonary disease with (acute) exacerbation Status: Acute Plan 1. Aspiration pneumonia - likely 2/2 pneumonia in the setting of COPD on 4 L nasal cannula at home patient now on Airvo F/u blood culture - continue ceftriaxone and azithromycin, Flagyl added patient refused feeding tube Her mother decided to transition to comfort care/hhospice hospice consulted 2. COPD - O2 requirement at baseline less likely this is exacerbation - Continue home Wixela Inhub with prn albuterol - continue montelukast 3. dysphagia - continue pureed diet 4. history of CVA with right-sided deficit physical and occupational therapy Iron deficiency anemia Hb 9.9, Isat 5, and Ferritin 13 Started IV Iron 1000/1000mg, now iron replete Acute on chronic resp failure 4 liters at baseline from severe bilateral aspiration Now on Airvo DVT prophylaxis on Sq Lovenox Hospice consulted Subjective Date/time seen: 07/03/25 13:21 Interval history: Comfortable at bedside Discussed extensively with her mother yesterday evening and today goals of care She decided to transition hospice/comfort care Review of Systems Review of Systems: All systems reviewed & are unremarkable except as noted in HPI and below ROS unobtainable: Yes unobtainable due to medical condition Exam Narrative: APPEARANCE: poor oral hygiene, obese, severe aphasia EYES: EOMI HEENT: Normocephalic, atraumatic, OMM RESPIRATORY: No respiratory distress Clear to auscultation bilaterally with no rhonchi wheezing or rales. CARDIOVASCULAR: RRR, S1 and S2 without murmurs rubs or gallops. ABDOMINAL: Soft, nontender, nondistended, no rebound or guarding MUSCULOSKELETAl: right-sided hemiplegic NEURO: Awake and alert. Following commands, aphasia, right-sided body paralyses SKIN:: Warm, dry. No rashes lesions or abrasions PSYCHIATRIC: anxious Objective Data Vital Signs Vital Signs: Vital Signs - 24 hr 07/02/25 13:33 07/02/25 14:00 07/02/25 14:27 Temperature Pulse Rate 97 100 97 Respiratory Rate 22 H 22 H Blood Pressure Pulse Oximetry Oxygen Delivery Oxygen Flow Rate Fraction of Inspired Oxygen 07/02/25 14:36 07/02/25 16:00 07/02/25 16:00 Temperature 99 F Pulse Rate 100 102 H Respiratory Rate 20 20 Blood Pressure 125/65 Pulse Oximetry 93 89 L 92 Oxygen Delivery High Flow Therapy with Na High Flow Therapy with Na Oxygen Flow Rate 60 60 Fraction of Inspired Oxygen 90 95 07/02/25 16:00 07/02/25 16:37 07/02/25 18:00 Temperature Pulse Rate 96 98 96 Respiratory Rate Blood Pressure Pulse Oximetry 86 L Oxygen Delivery High Flow Nasal Cannula Oxygen Flow Rate 60 Fraction of Inspired Oxygen 92 07/02/25 20:00 07/02/25 20:00 07/02/25 20:00 Temperature 98.1 F Pulse Rate 96 93 Respiratory Rate 22 H Blood Pressure 119/65 Pulse Oximetry 85 L 90 Oxygen Delivery High Flow Therapy with Na Oxygen Flow Rate 60 Fraction of Inspired Oxygen 95 07/02/25 20:15 07/02/25 20:15 07/02/25 20:34 Temperature Pulse Rate 94 94 93 Respiratory Rate 22 H 22 H Blood Pressure Pulse Oximetry 88 L Oxygen Delivery High Flow Nasal Cannula Oxygen Flow Rate 60 Fraction of Inspired Oxygen 92 07/03/25 00:00 07/03/25 00:00 07/03/25 00:00 Temperature 98 F Pulse Rate 90 93 Respiratory Rate 20 Blood Pressure 114/65 Pulse Oximetry 90 91 Oxygen Delivery High Flow Therapy with Na Oxygen Flow Rate 60 Fraction of Inspired Oxygen 95 07/03/25 02:00 07/03/25 02:15 07/03/25 02:16 Temperature Pulse Rate 98 94 93 Respiratory Rate 22 H Blood Pressure Pulse Oximetry 91 Oxygen Delivery High Flow Nasal Cannula Oxygen Flow Rate 60 Fraction of Inspired Oxygen 91 07/03/25 02:30 07/03/25 03:18 07/03/25 03:38 Temperature Pulse Rate 92 96 Respiratory Rate 22 H Blood Pressure Pulse Oximetry 90 89 L Oxygen Delivery High Flow Nasal Cannula High Flow Therapy with Na Oxygen Flow Rate 60 60 Fraction of Inspired Oxygen 92 95 07/03/25 04:00 07/03/25 04:00 07/03/25 05:49 Temperature 98.9 F Pulse Rate 105 H 92 99 Respiratory Rate 24 H Blood Pressure 116/77 Pulse Oximetry 89 L Oxygen Delivery Oxygen Flow Rate Fraction of Inspired Oxygen 07/03/25 07:55 07/03/25 08:00 07/03/25 08:00 Temperature 98.3 F Pulse Rate 96 93 97 Respiratory Rate 22 H 21 H Blood Pressure 123/64 Pulse Oximetry 94 Oxygen Delivery Oxygen Flow Rate Fraction of Inspired Oxygen 07/03/25 08:09 07/03/25 10:00 07/03/25 10:30 Temperature 97.6 F Pulse Rate 99 76 Respiratory Rate 17 Blood Pressure 126/71 Pulse Oximetry 90 100 Oxygen Delivery High Flow Nasal Cannula Oxygen Flow Rate 60 Fraction of Inspired Oxygen 92 07/03/25 11:59 07/03/25 12:00 Temperature 98.2 F Pulse Rate 102 H 101 H Respiratory Rate 24 H Blood Pressure 121/54 L Pulse Oximetry 93 Oxygen Delivery Oxygen Flow Rate Fraction of Inspired Oxygen Intake/Output Intake/Output: Intake & Output 06/30/25 07/01/25 07/02/25 07/03/25 23:59 23:59 23:59 23:59 Intake Total 520 540 500 Output Total 550 750 275 450 Balance -30 -210 225 -450 Meds/Results Medications: Active Medications Generic Name Dose Route Start Last Admin Trade Name Freq PRN Reason Stop Dose Admin Albuterol 1 puff 06/29/25 12:19 Albuterol Sulfate (*Sp) Aerosol 1 Puff INHALATION Q4H PRN Shortness Of Breath Or Wheezing Albuterol/Ipratropium 3 ml 06/29/25 14:00 07/03/25 07:59 Ipratropium 0.5 Mg/Albuterol Sulfate 2.5 Mg Ampul.Neb 3 Ml INHALATION 3 ml Q6HRT [facility] Administration Amantadine HCl 100 mg 06/30/25 09:00 07/03/25 08:43 Amantadine Hcl 100 Mg Capsule PO Not Given DAILY [facility] Atorvastatin Calcium 10 mg 06/29/25 21:00 07/02/25 21:03 Atorvastatin 10 Mg Tablet PO Not Given HS [facility] Citalopram Hydrobromide 20 mg 06/29/25 21:00 07/03/25 08:44 Citalopram Hydrobromide 20 Mg Tablet PO Not Given Q12H [facility] Enoxaparin Sodium 40 mg 07/01/25 09:00 07/03/25 08:43 Enoxaparin 40 Mg/0.4 Ml Syringe SUB-Q 40 mg DAILY [facility] Administration Ceftriaxone Sodium 1 gm/ 50 mls @ 100 mls/hr 06/30/25 09:00 07/03/25 08:42 Sodium Chloride IVPB 07/05/25 08:59 100 mls/hr DAILY [facility] Administration Metronidazole 500 mg in 100 mls @ 100 mls/hr 07/02/25 14:25 07/03/25 05:50 Flagyl 500 Mg/Iso Soln 100 Ml IVPB 100 mls/hr Q8HR [facility] Administration Loratadine 10 mg 06/30/25 09:00 07/03/25 08:44 Loratadine 10 Mg Tablet PO Not Given QAM [facility] Melatonin 5 mg 06/29/25 21:00 07/02/25 21:03 Melatonin 5 Mg Tablet PO Not Given HS [facility] Methylprednisolone Sodium Succinate 60 mg 07/02/25 06:00 07/03/25 05:57 Methylprednisolone Sod Succ 125 Mg Vial IV PUSH 60 mg Q8HR [facility] Administration Mirtazapine 15 mg 06/29/25 21:00 07/02/25 21:03 Mirtazapine 15 Mg Tablet PO Not Given HS [facility] Montelukast Sodium 10 mg 06/30/25 09:00 07/03/25 08:44 Montelukast Sodium 10 Mg Tablet PO Not Given DAILY [facility] Morphine Sulfate 2 mg 07/02/25 16:24 07/03/25 06:10 Morphine Sulfate (*Crx) 4 Mg/Ml Inj IV PUSH 2 mg Q4H PRN Administration Pain Rated 7-10 Pregabalin 75 mg 06/29/25 21:00 07/03/25 08:44 Pregabalin (*Crx) 75 Mg Capsule PO Not Given Q12H [facility] Radiology Results: ITS Impressions Modified Barium Swallow 06/30/25 14:24 IMPRESSION: Mild oropharyngeal dysphagia with laryngeal penetration without aspiration with moderately thickened liquids. Please correlate with speech pathologist findings and specific feeding recommendations. Chest X-Ray 07/01/25 20:37 IMPRESSION: 1. Small lung volumes with improvement of opacities at the bilateral lung bases which could represent atelectasis or pneumonia. Chest CTA 07/02/25 12:05 IMPRESSION: 1. Large bilateral aspiration. Bilateral lower lobe bronchial occlusive debris. 2. Left upper lobe aspiration and/or airspace disease. 3. No PE. 4. T4 compression fracture. Labs Labs: Laboratory Results - last 24 hr 07/02/25 07/03/25 17:36 04:20 WBC 9.9 RBC 4.13 L Hgb 10.2 L Hct 35.2 L MCV 85.2 MCH 24.7 L MCHC 29.0 L RDW 17.1 H Plt Count 287 MPV 10.6 H Immature Gran % (Auto) 1.7 H Neut % (Auto) 85.9 H Lymph % (Auto) 8.6 L [place] % (Auto) 3.6 Eos % (Auto) 0.0 Baso % (Auto) 0.2 Lymph # (Auto) 0.85 L [place] # (Auto) 0.4 Eos # (Auto) 0.0 Baso # (Auto) 0.0 Abs Immat Gran (auto) 0.17 H Absolute Neuts (auto) 8.5 H Absolute Nucleated RBC 0.000 Nucleated RBC % 0.0 Sodium 144 144 Potassium 4.0 4.0 Chloride 109 H 110 H Carbon Dioxide 29 30 Anion Gap 6 4 BUN 19 H 22 H Creatinine 0.50 L 0.53 L Estim Creat Clear Calc 105 100 Estimated GFR > 60 > 60 Glucose 123 H 139 H Lactic Acid 0.8 Calcium 8.9 9.3 Magnesium 2.6 H Total Bilirubin 0.3 AST 40 H ALT 33 Alkaline Phosphatase 161 H C-Reactive Protein 3.8 H NT-Pro-B Natriuret Pep 880 H Total Protein 7.9 Albumin 3.8 Procalcitonin 0.1 Quality VTE Prophylaxis VTE prophylaxis: pharmacologic ordered
[2025-07-03] MEDS: diazePAM INJ (*CRX) 10 MG/2 ML SYRINGE 2 MG IV PUSH (20:34)
--- NOTE | 2025-07-03 20:38 | PC.NURSE ---
Received orders from Hospice nurse/doctor. Family notified by hospice nurse of change in status. Patient educated on process of transitioning off oxygen and being administered comfort medications. Notified respiratory that Airvo is being discontinued and patient then will be taken off non-rebreather mask and placed on nasal cannula once patient is comfortable on medications.
== END 2025-07-03 23:10 | disposition hospice, home (50) | DRG 871 ==
LOC: ANHED 06:24 → ANH3MEDSUR 07:34 → ANHIMU 07-03 23:04 → ANH3MEDSUR 07-07 11:19 → ANHIMU 07-07 11:19
PROVIDERS: Internal Medicine Pulmonary Disease; Nurse Practitioner; Student in an Organized Health Care Education/Training Program; Admitting Provider Internal Medicine; Emergency Provider Emergency Medicine; PCP Internal Medicine; Visit Provider Internal Medicine
DX: A41.9 Sepsis, unspecified organism (principal); J18.9 Pneumonia, unspecified organism; J96.21 Acute and chronic respiratory failure with hypoxia; J69.0 Pneumonitis due to inhalation of food and vomit; I69.351 Hemiplegia and hemiparesis following cerebral infarction affecting right dominant side; J44.0 Chronic obstructive pulmonary disease with (acute) lower respiratory infection; T17.220A Food in pharynx causing asphyxiation, initial encounter; D50.9 Iron deficiency anemia, unspecified; R13.10 Dysphagia, unspecified; Z66 Do not resuscitate; I69.320 Aphasia following cerebral infarction; Z99.81 Dependence on supplemental oxygen; Z51.5 Encounter for palliative care; Z87.891 Personal history of nicotine dependence; E66.9 Obesity, unspecified; Z68.33 Body mass index [BMI] 33.0-33.9, adult
CPT/HCPCS: 36415; 36600; 71045; 71275; 74230; 80048; 80053; 82375; 82728; 82805; 83050; 83540; 83550; 83605; 83735; 83880; 84145; 85018; 85025; 85027; 86140; 87040; 87637; 92526; 92610; 92611; 93005; 94640; 94669; 96374; 99291; A9270; J0456; J0696; J1650; J1756; J1836; J1938; J2270; J2919; J3360; J7050; Q9967

== ENCOUNTER 2025-07-03 23:11 | HOS | payer OTHER, SELFPAY ==
--- OUTSIDE RECORDS SUMMARY | 2009-08-23 04:30 | XMS_ITS | Continuity of Care Document ---
Author Organization [facility] Address [address] [place] [address] Exec utive [facility] [address] [place] [address] Phone Care Team Providers Care Tractor Trailer Technician Name Role Phone Jerson Milan Unavailable Unavailable Procedures Procedure Date Eye Exam Established Pt Eye Exam Established Pt Advance Directives Directive Yes / No Effective Date File Name No Information Encounters Encounter Description Practice Location Reason(s) For Visit Diagnoses Date Provider Providers Copied on Encounter [facility], [address] [place] [address] [address], [place], [place], [id number], tel:[phone] SEC [facility] No Information [address]. [address] [facility] [address], [facility][note 2], . tel:[phone] [facility], [address] [place] [address] [address], [place], [place], [address], tel:[phone] SEC [facility] No Information [address]. [address] [facility] [place] , [address], [place], [place], [facility]note 2], [place]. tel:[phone] Family History Family Member Type Diagnosis Age At Onset No Information Payers Payer name Insurance type Covered constitution party ID Authorjuanita iniguez(s) [facility] Commercial CI [id number] Social History Type Description Quantity Date Captured [...]
--- OUTSIDE RECORDS SUMMARY | 2025-07-03 23:30 | XMS_ITS | Clinical Summary ---
Author Organization [facility] Address [address] [place] [address] Care Team Providers Care Client Experience Administrator Name Role Phone Jose Perez MD Primary Care Provider Source Comments [facility],non-[facility] Affiliates and Associated Physician Practices is amultiple site organization consisting of ambulatory clinics and hospital sitesin [place], [place], [place] and [place]. This disclosure is being madepursuant to the Care Everywhere program and may not contain all information available regarding this patient. Last updated 18.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
--- OUTSIDE RECORDS SUMMARY | 2025-07-03 23:32 | XMS_ITS | Clinical Summary ---
Author Organization [facility] Address [address] [place] [address] 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
--- OUTSIDE RECORDS SUMMARY | 2025-07-03 23:32 | XMS_ITS | Encounter Summary ---
[facility] Organization [facility] Address 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 Gender Identity Not on file Sexual Orientation [...] PM CDT Narrative 04/02/2008 3:51 PM CDT [facility] [address] [facility] [place] [address] Admit Date: 04/02/2008 ESME MORELOS Sex: F Admit Prov: ER, AUTHORIZED P Date: 1965 Primary Care Prov: Margarita POZO CMRN: [id number] [id number] Ordering Prov: N/A Accession Number: [id number] Interpretation EXAM: CT OF THE HEAD WITHOUT [...] DKT Procedure Note Alfonso Treadwell - 04/02/[address] [address] Admit Date: 04/02/2008 ESME MORELOS Sex: F Admit Prov: ER, AUTHORIZED P Date: 1965 Primary Care Prov: Margarita POZO CMRN: [id number] [id number] [facility] Ordering Prov: N/A Interpretation EXAM: [...] CDT) RDW-STDEV 42.0 37.1 - 48.7 fL [facility] RBC 4.79 3.90 - 4.90 M/uL [facility] MCHC 34.1 31.5 - 35.5 % [facility] MCV 86.4 82.0 - 99.0 fL [facility] PLATELETS 292 140 - 350 K/uL [facility] HEMOGLOBIN 14.1 11.8 - 14.8 g/dL [facility] RDW 13.2 11.5 - 14.5 % [facility] WBC 6.6 4.0 - 9.8 K/uL [facility] MCH 29.4 27.2 - 32.6 pg [facility] MPV 9.5 9.3 - 12.4 fL [facility] HEMATOCRIT 41.4 35.5 - 44.0 % [facility] EOSINOPHIL ABSOLUTE 0.07 0.00 - 0.70 K/uL [facility] LYMPHOCYTES 42 16 - 45 % [facility] LYMPHOCYTE ABSOLUTE 2.75 0.70 - 4.50 K/uL [facility] BASOPHILS 0 0 - 2 % [facility] BASOPHILS ABSOLUTE 0.02 0.00 - 0.20 K/uL [facility] MONOCYTES 6 3 - 13 % [facility] MONOCYTE ABSOLUTE 0.42 0.10 - 1.30 K/uL [facility] NEUTROPHILS 51 45 - 70 % [facility] NEUTROPHIL ABSOLUTE 3.34 1.90 - 7.00 K/uL [facility] EOSINOPHILS 1 0 - 7 % [facility] Blood specimen (specimen) 04/02/2008 1:20 PM CDT 04/02/2008 1:32 PM CDT us [place] MD HEMATOLOGY ORDERABLES Edited INTERFACE SYSTEM Refer to clinic/hospital department [facility] CLIA# [id number] [address] [place] [address] * (ABNORMAL) COMPREHENSIVE METABOLIC PANEL (04/02/2008 1:20 PM CDT) ALKALINE PHOSPHATASE 92 35 - 104 U/L [facility] BILIRUBIN TOTAL 0.4 0.2 - 1.0 mg/dL [facility] CO2 21(L) 22 - 30 mmol/L [facility] TOTAL PROTEIN 7.6 6.3 - 8.6 g/dL [facility] POTASSIUM 3.9 3.5 - 4.9 mmol/L [facility] GLUCOSE 86 65 - 99 mg/dL [facility] AST 16 12 - 32 U/L [facility] BUN 11 6 - 20 mg/dL [facility] CALCIUM 9.2 8.4 - 10.2 mg/dL [facility] CHLORIDE 103 96 - 108 mmol/L [facility] ALBUMIN 4.6 3.4 - 4.8 g/dL [facility] CREATININE 0.64 0.51 - 0.95 mg/dL [facility] SODIUM 135 135 - 145 mmol/L [facility] ALT 12 0 - 31 U/L [facility] GFR, >60 >=60 mL/min/1.7 sq meter [facility] GFR >60 >=60 mL/min/1.7 sq meter [facility] Comment: Modification of Diet in Renal Disease (MDRD) study formula. Estimated GFR rate interpretative information for both Americans and non- Americans is available on the [facility] Intranet at: [email or web address] Select: Lab Policies and Procedures Select: Reference Ranges - GFR Blood specimen (specimen) 04/02/2008 1:20 PM CDT 04/02/2008 1:32 PM CDT us [place] MD CHEMISTRY ORDERABLES Edited [facility] CLIA# [id number] [address] [place], [place] [address] documented in this encounter Visit Diagnoses Not on filedocumented in this encounter Care Teams Manager Drug Safety Relationship Specialty Start Date End Date Margarita Pozo MD PCP - General 04/01/08 09/15/21 documented as of this encounter
--- OUTSIDE RECORDS SUMMARY | 2025-07-03 23:32 | XMS_ITS | Patient Health Record ---
Author Organization [facility] Address [address] [place] [address] Care Team Providers Care Textile Colorist Dyer Name Role Phone Anshu Fuchs Primary Care Provider [phone] Rigoberto Conner Unavailable [phone] Anabel Hardwick Unavailable [phone] Allergies No Known Allergies Reason For Referral No Information Medications Medication SIG (Take, Route, Frequency, Duration) Notes Start Date End Date Status Vitamin D (Ergocalciferol) 1.25 MG (21036 UT) Take 1 capsule by mouth once a week; Duration: 28 days Active Ciprofloxacin-dexAMETHason e 0.3-0.1 % INSTILL 4 DROPS INTO AFFECTE EAR TWICE DAILY FOR 7 DAYS.; Duration: 7 Active Hydrocortisone 2.5 % 1 application AT BEDTIME Externally Once a day; Duration: 30 days Active Fluconazole 100 MG 1 tablet Orally octavio y; Duration: 7 days Active Wixela Inhub 100-50 MCG/ACT INHALE 1 DOSE BY MOUTH TWICE DAILY; Duration: 30 days Active Albuterol Sulfate (2.5 MG/3ML) 0.083% [...] Once a day; Duration: 30 days Active Melatonin 5 MG TAKE 1 TABLET [...] phone, visiting friends or family, going to adventist or club meetings) More than 5 times a week How stressed are you? Stress is when someone feels tense, nervous, anxious, or can\t sleep at night because their mind is troubled Not at all In the past year have you sp ent more than 2 nights in a row in a detention, retirement, group home center, or juvenile correctional facility? 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) 3 Active confirmed Problem Chronic respiratory failure (63884284) Chronic respiratory failure with hypoxia (J96.11) Active confirmed Problem Dysphagia (46550855) Dysphagia (R13.10) Active confirmed Problem Asthma (536837141) Asthma (J45.909) Active confirmed Problem Dysphagia (23982209) Dysphagia, unspecified type (R13.10) Active confirmed Problem Expressive aphasia (224691404) Expressive aphasia (R47.01) Active confirmed Problem Completed stroke (23698056) Completed stroke (I63.9) 8 Active confirmed Problem Right hemiplegia (599270847) Right hemiplegia (G81.91) 8 Active confirmed Vital Signs Heart Rate 84 /min 06/05/2025 Respiratory Rate 20 /min 06/05/2025 Blood pressure diastolic 84 mm Hg 06/05/2025 Oximetry 94 % 06/05/2025 Height 64 in 06/05/2025 Blood pressure systolic 114 mm Hg 06/05/2025 Encounters Encounter Location Date Provider Diagnosis [address] [place] [address] 06/05/2025 Anshu Fuchs Chronic respiratory failure with hypoxia J96.11 ; Dysphagia, unspecified type R13.10 ; Right hemiplegia G81.91 ; Asthma J45.909 and Completed stroke I63.[address] [address] 07/23/2024 Anshu Fuchs [address] [address] 07/23/2024 Anshu Fuchs [address] [address] 07/30/2024 Anshu Fuchs [address] [address] 08/05/2024 Anshu Fuchs [address] [address] 11/03/2024 Anshu Fuchs Dysphagia R13.[address] [address] 11/07/2024 Rigoberto Conner Dysphagia R13.[address] [address] 12/22/2024 Anshu Fuchs [address] [address] 01/29/2025 Anshu Fuchs Conjunctivitis H10.[address] [address] 02/19/2025 Anshu Fuchs [address] [place] [address] 02/20/2025 Anshu Fuchs [address] [place] [address] 03/26/2025 Anshu Fuchs Thelma infection B37.[address] [place] [address] 04/14/2025 Anshu Fuchs [facility] [address] [place] [address] 04/16/2025 Anabel Hardwick Asthma J45.[address] [address] 04/29/2025 Anshu Fuchs Dermatitis L30.[address] [address] 05/05/2025 Anshu Fuchs Conjunctivitis H10.[address] [address] 05/26/2025 Anshu Fuchs [address] [address] 05/27/2025 Anshu Fuchs Dermatitis L30.[address] [address] 06/29/2025 Anshu Fuchs Assessments Encounter Date Diagnosis (ICD Code) Assessment [...] End Date [employer] [address] [place] [address] [id number] Esme Zeng Self - patient is the insured 3 3 [employer] [facility] [address] [place] [address] [id number] Esme Zeng Self - patient is the insured 3 MEDICARE PART A [address] [facility] [place] [address] [id number] Esme Zeng Self - patient is the insured 3 Medical (General) History Surgical History Surgery Date(Month/Year) Brain shunt 12/2017 Hospitalization History Reason Date(Month/Year) Stroke 12/2017
[2025-07-03] MEDS: MORPHINE SULFATE (*CRX) 4 MG/ML INJ 2 MG IV PUSH (23:49)
[2025-07-04 00:20] VITALS: BMI 33.9
[2025-07-04] MEDS: diazePAM INJ (*CRX) 10 MG/2 ML SYRINGE 2 MG IV PUSH (00:57)
[2025-07-04] MEDS: MORPHINE SULFATE (*CRX) 4 MG/ML INJ 2 MG IV PUSH ×2 (00:57→02:11)
[2025-07-04] MEDS: MORPHINE 50 MG/NS 100ML (*CRX) 50 MG/100 ML BAG 6 MG IV CONT ×2 (03:08→18:46)
[2025-07-04] MEDS: diazePAM INJ (*CRX) 10 MG/2 ML SYRINGE 3 MG IV PUSH ×5 (03:11→18:09)
[2025-07-04] MEDS: MORPHINE SULFATE (*CRX) 4 MG/ML INJ 3 MG IV PUSH ×5 (04:32→18:10)
--- NOTE | 2025-07-04 14:15 | PM.IMHP ---
H&P: HPI History of Present Illness Date/Time: 07/04/25 14:15 Chief Complaint: difficulty of breathing Narrative: Esme Zeng is a 60 year old female with pmhx of CVA with right hemiplegic and aphasia and COPD on home O2 4L NC who is here for sob. Managed for Pneumonia and Acute on chronic respiratory failure. Patient was evaluated by ST and recommended Pureed diet with thickened liquid. However she decompensated and CT chest showed massive aspiration bilaterally. Patient declined tube feeding. eventually patient was made Comfort care by her MOther and she is transitioned to comfort care [facility] Past Medical History Medical History (Updated 06/29/25 @ 12:13 by Jada Sanchez MD) Dysphagia Family History Family History (Updated 07/04/25 @ 00:11 by Luz Kendrick RN) Other Unknown family medical history Social History Social History Smoking packs per day: 1 Smoking cigarettes per day: 20.0 Years smoked: 40 Smoking pack-years: 40.00 Smoking status: Former smoker Tobacco type: cigarettes Smoking end date: 01/18/18 Alcohol intake: never Substance use: never Lack of Transportation: No Lack of Food: Never True Current Housing: I Have Housing Concerned About Future Housing: No Difficulty Paying Gas/Electric Bills: No Difficulty Paying for Meds: No Currently Unemployed: No Education: High School Diploma/GED Difficulty w/ Childcare or Family Care: No Spiritual care concerns: No Meds Home Medications and Allergies Home Medications ?Medication ?Instructions ?Recorded ?Confirmed ?Type pregabalin 75 mg capsule 75 mg PO Q12H 06/29/25 07/04/25 History Allergies Allergy/AdvReac Type Severity Reaction Status Date / Time No Known Allergies Allergy Mild Verified 06/27/21 13:39 Vital Signs Vital Signs - 24 hr 07/04/25 08:00 Oxygen Delivery High Flow Therapy with Na Oxygen Flow Rate 2 Exam Narrative: Comfortable at bedside, now nasal cannula 2 liters Assessment and Plan Assessment and plan (1) Community acquired pneumonia: Code(s): J18.9 - Pneumonia, unspecified organism Status: Acute (2) Respiratory failure: Code(s): J96.90 - Respiratory failure, unspecified, unspecified whether with hypoxia or hypercapnia Status: Acute (3) Sepsis: Code(s): A41.9 - Sepsis, unspecified organism Status: Acute Plan Aspiration pnuemonia Acute on chronic hypoxemic respiratory failure COPD Iron deificiency anemia Hx of CVA with right sided deficit Dysphagia Patient was initailly managed with antibiotics and on oxygen, however she decompensated by large aspiration. Mother decided to transition to comfort care Patient now on Comfort care monitor
[2025-07-04 21:10] VITALS: BP 67/42; PULSE 85; RESP 4; TEMP 35.6; O2SAT 64
[2025-07-05] MEDS: diazePAM INJ (*CRX) 10 MG/2 ML SYRINGE 3 MG IV PUSH (00:46)
--- NOTE | 2025-07-05 02:44 | PC.NURSE ---
At approx. 0150 rounded on pt. Pt no longer noted to be breathing. Used stethoscope to confirm, no breath sounds audible. Apical pulse also not audible. Peripheral pulses not palpable. Pt did not react to stimuli. Notified charge nurse, SAM Bo of findings. Charge nurse confirmed findings. Pt pronounced @0150 on 07/05/25. Family called and updated @0202.
--- NOTE | 2025-07-05 03:15 | PC.NURSE ---
[facility] Code: [id number] spoke with Ashlyn/ Felecia @ [facility]
--- NOTE | 2025-07-05 13:25 | P.DN_ITS ---
Discharge Summary Date and Time Date of : 07/05/25 Time of : 01:50 Provider Pronounced By: 2 RNs Name of First RN That Pronounced: Janet Banuelos RN Name of Second RN That Pronounced: Betzy Nice RN Probable Cause of Probable Cause of : Acute hypoxemic respiratory failure Aspiration Pneumonia Summary Hospital Course: Reason for Admission: Shortness of breath in the setting of advanced cerebrovascular disease, chronic obstructive pulmonary disease (COPD), and dysphagia. Hospital Course: Ms. Esme Zeng, a 60-year-old female with a history of CVA (right hemiplegia, aphasia), COPD on home O2 (4L NC), and chronic dysphagia, was admitted for acute shortness of breath. On presentation, she was afebrile, oriented, and in moderate respiratory distress. Initial workup revealed leukocyt osis (WBC 11.8), negative viral PCR, and chest imaging showing left lung interstitial infiltrate/pneumonitis. She was started on ceftriaxone and azithromycin for presumed community-acquired pneumonia, and continued on her home COPD regimen. During her hospitalization, she underwent a modified barium swallow which demonstrated significant aspiration with laryngeal penetration. Speech therapy recommended a pureed diet with thickened liquids. Despite these measures, the patient experienced a large-volume aspiration event, resulting in acute decompensation and severe hypoxemia. Oropharyngeal suctioning yielded a large amount of aspirated food. She was transitioned to high-flow oxygen (Airvo) and made NPO. Her mother, who is also her power of attorney law clerk, was involved in all care decisions. Given her poor prognosis, advanced neurological deficits, and progressive respiratory failure, the patient and her mother declined further invasive interventions, including tube feeding. After multidisciplinary discussion and in accordance with the patient?s and family?s wishes, she was transitioned to comfort care/hospice. Antibiotics and non-comfort measures were discontinued, and she was maintained on oxygen for comfort. Ms. Zeng peacefully on 07/05/2025 at 01:50. Family was notified. Principal Diagnoses: * Massive aspiration pneumonia?(J69.0) * Acute on chronic hypoxemic respiratory failure?(J96.21) * Chronic obstructive pulmonary disease (COPD)?(J44.9) * History of CVA with right hemiplegia and aphasia?(I69.351, I69.320) * Dysphagia?(R13.10) * Iron deficiency anemia?(D50.9) * Sepsis, unspecified organism?(A41.9) Other Active Problems: * Former tobacco use (40 pack-years, quit 2018) * Home O2 dependence * Pureed diet with thickened liquids (prior to NPO status) Procedures: * Oropharyngeal suctioning * High-flow oxygen therapy (Airvo) * IV iron repletion Consultations: * Speech Therapy * Physical and Occupational Therapy * Hospice/Palliative Care Discharge Disposition: in hospital. Comfort care at time of . Family notified. Summary: Ms. Zeng was admitted with acute respiratory distress on a background of severe neurological and pulmonary comorbidities. Her hospital course was complic ated by massive aspiration, leading to acute on chronic respiratory failure and sepsis. After a decline in her clinical status and in accordance with her and her family?s wishes, she was transitioned to comfort care and peacefully. Additional Data Confirmation of as documented by pronouncing clinician: Pupillary Reflex, Palpable Pulses, Response to Stimuli, Heart Tones and Breath Sounds Name of Provider Notified: Anshu Fuchs Time Provider Notified: 02:50 Provider Requests Autopsy: No Family Requests Autopsy: No Registered Nurse Maternity Notified: Yes Date [facility] Notified of : 07/05/25 Time [facility] Notified of : 02:12
== END 2025-07-05 01:50 | disposition hospice, inpatient (51) | DRG 951 ==
LOC: ANH2MED 07-05 05:06 → ANHIMU 07-07 12:51
PROVIDERS: Admitting Provider Internal Medicine; PCP Internal Medicine; Visit Provider Internal Medicine
DX: Z51.5 Encounter for palliative care (principal); A41.9 Sepsis, unspecified organism; J69.0 Pneumonitis due to inhalation of food and vomit; J96.21 Acute and chronic respiratory failure with hypoxia; J18.9 Pneumonia, unspecified organism; I69.351 Hemiplegia and hemiparesis following cerebral infarction affecting right dominant side; J44.0 Chronic obstructive pulmonary disease with (acute) lower respiratory infection; I69.320 Aphasia following cerebral infarction; D50.9 Iron deficiency anemia, unspecified; R13.19 Other dysphagia; Z99.81 Dependence on supplemental oxygen; Z87.891 Personal history of nicotine dependence
CPT/HCPCS: J2270; J3360